=== PATIENT | female | born 1995 | race Caucasian/White ===

== ENCOUNTER 2017-07-29 18:55 | Emergency (ER) | payer SELFPAY ==
[2017-07-29] MEDS ORDERED: SODIUM CHLORIDE 0.9% 1,000 ML IV ONE ×2 (19:15)
--- NOTE | 2017-07-29 19:19 | ED Physician Documentation ---
History of Present Illness - Stated complaint Stated Complaint: NAUSEA/DIARRHEA - Chief complaint Chief Complaint: Abd Pain - History obtained from History obtained from: Patient, Friend - History of Present Illness Timing: Today, How many hours ago (3) Pain level max: 8 Pain level now: 7 Improved by: dark room Worsened by: light, noise - Additonal information Additional information: Patient is a 21-year-old female who presents to the emergency department with a headache that began 3-4 hours ago, this was followed by nausea. No vomiting. Has had diarrhea also today. No fevers. No recent trauma. States the light makes the headache worse. No history of migraines in the family. No history of aneurysms. Patient also states that she had a tampon in for 36 hours and is concerned that she may have developed toxic shock syndrome. She removed the tampon prior to arrival. Currently does not have any vaginal discharge or pain. Review of Systems Ten Systems: 10 systems reviewed and negative Constitutional: denies: Fever, Chills Eyes: reports: Photophobia. denies: Loss of vision, Decreased vision Ears: denies: Ear pain Nose: denies: Rhinorrhea / runny nose, Congestion Throat: denies: Sore throat Cardiac: denies: Chest pain / pressure Respiratory: denies: Cough, Wheezing GI: reports: Nausea, Diarrhea. denies: Abdominal Pain, Vomiting : reports: Other (states she may be ) Skin: denies: Rash Musculoskeletal: denies: Neck pain, Back pain Neurologic: reports: Headache (holocranial, throbbing, aching, gradual onset.). denies: Focal weakness, Numbness, Seizure, Confused, Altered mental status PD PAST MEDICAL HISTORY - Past Medical History Past Medical History: Yes Endocrine/Autoimmune: HyPOthyroidism - Past Surgical History Past Surgical History: Yes General: Cholecystectomy /STRATEGY LEAD: section HEENT: Tonsil/Adenoidectomy - Present Medications Home Medications: Ambulatory Orders Medication Instructions Recorded Confirmed No Known Home Medications [No 07/29/17 07/29/17 Known Home Medications] - Allergies Allergies/Adverse Reactions: Allergies Allergy/AdvReac Type Severity Reaction Status Date / Time oxycodone HCl * Allergy Headache Verified 09/25/15 22:52 [From Percocet] - Social History Does the pt smoke?: No Smoking Status: Never smoker Does the pt drink ETOH?: No Does the pt have substance abuse?: No - Immunizations Immunizations are current?: Yes - POLST Patient has POLST: No PD ED PE NORMAL - Vitals Vital signs reviewed: Yes - General General: Alert and oriented X 3, No acute distress, Well developed/nourished - HEENT HEENT: Atraumatic, PERRL, EOMI, Ears normal, Moist mucous membranes, Pharynx benign, Dentition benign - Neck Neck: Supple, no meningeal sign, Other (FROM without pain) - Cardiac Cardiac: RRR, Strong equal pulses - Respiratory Respiratory: No respiratory distress, Clear bilaterally - Abdomen Abdomen: Soft, Non tender, Non distended - Back Back: No CVA TTP - Derm Derm: Warm and dry, No rash - Extremities Extremities: No edema - Neuro Neuro: Alert and oriented X 3, 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, No motor deficit, No sensory deficit, Normal speech - Psych Psych: Normal mood, Normal affect Results - Vitals Vitals: Vital Signs - 24 hr 07/29/17 07/29/17 19:00 20:49 Temperature 36.2 C L Heart Rate 60 47 L Respiratory 16 16 Rate Blood Pressure 137/92 H 118/64 O2 Saturation 100 100 Oxygen O2 Source Room air - Labs Labs: Laboratory Tests 07/29/17 07/29/17 07/29/17 19:24 19:24 19:24 WBC 10.3 RBC 4.28 Hgb 12.1 Hct 36.9 L MCV 86.0 MCH 28.2 MCHC 32.8 RDW 14.5 Plt Count 278 MPV 8.1 Neut # 8.6 H Lymph # 1.2 L Mobile # 0.4 Eos # 0.0 Baso # 0.0 Absolute Nucleated RBC 0.00 Nucleated RBC % 0.0 Sodium 135 Potassium 3.9 Chloride 100 L Carbon Dioxide 25 Anion Gap 10.0 BUN 15 Creatinine 0.7 Estimated GFR (MDRD) 106 Glucose 110 H Calcium 9.6 Total Bilirubin 0.2 AST 19 ALT 21 Alkaline Phosphatase 61 Total Protein 7.5 Albumin 3.9 Globulin 3.6 Albumin/Globulin Ratio 1.1 Lipase 24 Serum HCG, Qual NEGATIVE Urine Color Urine Clarity Urine pH Ur Specific [place] Urine Protein Urine Glucose (UA) Urine Ketones Urine Occult Blood Urine Nitrite Urine Bilirubin Urine Urobilinogen Ur Leukocyte Esterase Ur Microscopic Review Urine Culture Comments 07/29/17 19:35 WBC RBC Hgb Hct MCV MCH MCHC RDW Plt Count MPV Neut # Lymph # Mobile # Eos # Baso # Absolute Nucleated RBC Nucleated RBC % Sodium Potassium Chloride Carbon Dioxide Anion Gap BUN Creatinine Estimated GFR (MDRD) Glucose Calcium Total Bilirubin AST ALT Alkaline Phosphatase Total Protein Albumin Globulin Albumin/Globulin Ratio Lipase Serum HCG, Qual Urine Color YELLOW Urine Clarity CLEAR Urine pH 6.0 Ur Specific [place] 1.025 Urine Protein NEGATIVE Urine Glucose (UA) NEGATIVE Urine Ketones NEGATIVE Urine Occult Blood NEGATIVE Urine Nitrite NEGATIVE Urine Bilirubin NEGATIVE Urine Urobilinogen 0.2 (NORMAL) Ur Leukocyte Esterase NEGATIVE Ur Microscopic Review NOT INDICATED Urine Culture Comments NOT INDICATED PD MEDICAL DECISION MAKING - ED course Complexity details: reviewed results, re-evaluated patient, considered differential, d/w patient, d/w family (friend) ED course: Patient is a 21-year-old female who presents to the emergency department with what appears to be a migraine type headache. Zofran resolved her nausea. IV fluids and Toradol resolved her headache. Pain was down to a 1 out of 10. She is able to open her eyes and be in a brightly lit environment. Tolerating p.o. without difficulty. No evidence of toxic shock. No evidence of subarachnoid hemorrhage. No evidence of tumor mass. Normal neurological exam. Patient counseled regarding signs and symptoms for which I believe and urgent re- evaluation would be necessary. Patient with good understanding of and agreement to plan and is comfortable going home at this time This document was made in part using voice recognition software. While efforts are made to proofread this document, sound alike and grammatical errors may occur. Departure - Departure Disposition: 01 Home, Self Care Clinical Impression: Headache Qualifiers: Headache type: unspecified Headache chronicity pattern: acute headache Intractability: not intractable Qualified Code(s): R51 - Headache Condition: Good Instructions: ED Headache Migraine Follow-Up: Spring Hernandez DO [Primary Care Provider] - Within 1 week Comments: Go home and rest tonight. Return if you worsen. This should continue to improve.
[2017-07-29 19:30] LABS: BASOPHILS % (AUTO) 0.3 %; EOSINOPHILS % (AUTO) 0.2 %; HGB - HEMOGLOBIN 12.1 g/dL (12.0-16.0); LYMPHOCYTES # (AUTO) 1.2 10^3/uL (1.5-3.5); LYMPHOCYTES % (AUTO) 12.2 %; MEAN CORPUSCULAR HEMOGLOBIN 28.2 pg (27.0-31.0); MEAN CORPUSCULAR HGB CONC 32.8 g/dL (32.0-36.0); MEAN PLATELET VOLUME 8.1 fL (7.9-10.8); MONOCYTES # (AUTO) 0.4 10^3/uL (0.0-1.0); MONOCYTES % (AUTO) 3.9 %; NEUTROPHILS # (AUTO) 8.6 10^3/uL (1.5-6.6); NEUTROPHILS % (AUTO) 83.4 %; PLT - PLATELET COUNT 278 10^3/uL (130-450); RED BLOOD COUNT 4.28 10^6/uL (4.20-5.40); RED CELL DISTRIBUTION WIDTH 14.5 % (12.0-15.0); WHITE BLOOD COUNT 10.3 x10^3/uL (4.8-10.8)
[2017-07-29 19:42] LABS: ALBUMIN 3.9 g/dL (3.2-5.5); ALBUMIN/GLOBULIN RATIO 1.1 (1.0-2.2); BILIRUBIN,TOTAL 0.2 mg/dL (0.2-1.0); CALCIUM 9.6 mg/dL (8.5-10.3); CREATININE 0.7 mg/dL (0.4-1.0); TOTAL PROTEIN 7.5 g/dL (6.7-8.2)
[2017-07-29 19:52] LABS: BILIRUBIN,URINE NEGATIVE (NEGATIVE); GLUCOSE, URINE (UA) NEGATIVE (NEGATIVE); KETONES,URINE (UA) NEGATIVE (NEGATIVE); LEUKOCYTE ESTERASE, URINE NEGATIVE (NEGATIVE); NITRITE,URINE NEGATIVE (NEGATIVE); OCCULT BLOOD,URINE NEGATIVE (NEGATIVE); PROTEIN,URINE NEGATIVE (NEGATIVE); UROBILINOGEN,URINE 0.2 (NORMAL) E.U./dL (NORMAL)
[2017-07-29 19:56] LABS: CLARITY,URINE CLEAR (CLEAR)
[2017-07-29 20:20] LABS: HCG,QUALITATIVE BLOOD NEGATIVE
[2017-07-29] MEDS ORDERED: KETOROLAC 60 MG/2 ML VIAL IVP STA (20:23)
[2017-07-29] MEDS ORDERED: ONDANSETRON 4 MG/2 ML VIAL IVP STA (20:23)
[2017-07-29 20:51] VITALS: BP 118/64
[2017-07-29] MEDS ORDERED: ONDANSETRON ODT 4 MG Prepack 2 TL PRN (21:05)
== END 2017-07-29 21:38 | disposition home or self-care (01) ==
LOC: ED 18:55
DX: R51 Headache (principal)
CPT/HCPCS: 36415; 80053; 81001; 81003; 83690; 84703; 85025; 87086; 96361; 96374; 96375; 99283; 99284

== ENCOUNTER 2018-04-11 14:09 | Outpatient (CLI) | payer MEDICAID ==
[2018-04-11 14:46] LABS: HB2 TOTAL 13.7 g/dL; HEMOGLOBIN A1C 0.53 g/dL; HEMOGLOBIN A1C % 5.7 % (4.6-6.2)
[2018-04-11 16:41] LABS: THYROID STIMULATING HORMONE 3.05 uIU/mL (0.34-5.60)
[2018-04-11 16:43] LABS: FREE T4 (FREE THYROXINE) 0.84 ng/dL (0.58-1.64)
== END 2018-04-11 14:10 | disposition home or self-care (01) ==
LOC: LAB 14:09
PROVIDERS: ATTEND Obstetrics & Gynecology
DX: E66.9 Obesity, unspecified (principal)
CPT/HCPCS: 36415; 83036; 84439; 84443; 84481

== ENCOUNTER 2018-04-26 23:12 | Emergency (ER) | payer MEDICAID ==
[2018-04-27] MEDS ORDERED: TETANUS/DIPHTHERIA/PERTUSSIS 0.5 ML SYRINGE IM ONE (00:19)
--- NOTE | 2018-04-27 00:19 | ED Physician Documentation ---
PD HPI LOWER EXT INJURY - Stated complaint Stated Complaint: R ANKLE PX - Chief complaint Chief Complaint: Ext Problem - History obtained from History obtained from: Patient - History of Present Illness PD HPI LOW EXT INJURY LOCATION: Right, Ankle Type of injury: Other (abrasion) Where injury occurred: Other ([employer] [facility]) Pain level max: 0 Pain level now: 0 - Additional information Additional information: sustained abrasion right ankle on alen nail at [employer] [facility]. She presents requesting tetanus booster shot; she has no c/o pain and is here only for the tetanus shot. 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: section HEENT: Tonsil/Adenoidectomy - Present Medications Home Medications: Ambulatory Orders Medication Instructions Recorded Confirmed No Known Home Medications 07/29/17 07/29/17 - Allergies Allergies/Adverse Reactions: Allergies Allergy/AdvReac Type Severity Reaction Status Date / Time oxycodone HCl * Allergy Headache Verified 09/25/15 22:52 [From Percocet] - Social History Does the pt smoke?: No Smoking Status: Never smoker Does the pt drink ETOH?: No Does the pt have substance abuse?: No - Immunizations Immunizations are current?: Yes - POLST Patient has POLST: No PD ED PE NORMAL - Vitals Vital signs reviewed: Yes - Extremities Extremities: No tenderness to palpate, Normal ROM s pain, No edema, Other (superficial linear abrasion medial aspect right distal leg (immediately proximal to medial malleolus)) Results - Vitals Vitals: Vital Signs - 24 hr 04/26/18 04/27/18 23:18 00:35 Temperature 36.7 C Heart Rate 68 Respiratory 17 16 Rate Blood Pressure 135/91 H 127/78 O2 Saturation 100 Oxygen O2 Source Room air PD MEDICAL DECISION MAKING - ED course Complexity details: considered differential, d/w patient Departure - Departure Disposition: 01 Home, Self Care Clinical Impression: Abrasion Condition: Good Instructions: ED Abrasion, ED Immunization Tetanus and FU Discharge Date/Time: 04/27/18 00:36
[2018-04-27 00:37] VITALS: BP 127/78
== END 2018-04-27 00:36 | disposition home or self-care (01) ==
LOC: ED 23:12
DX: S90.511A Abrasion, right ankle, initial encounter (principal); X58.XXXA Exposure to other specified factors, initial encounter; Y92.89 Other specified places as the place of occurrence of the external cause; Y99.0 Civilian activity done for income or pay
CPT/HCPCS: 90471; 99282; 99283

== ENCOUNTER 2019-09-01 13:26 | Outpatient (CLI) | payer SELFPAY | END 2019-09-01 13:27 | disposition home or self-care (01) | LOC: COV 13:26 | PROVIDERS: ATTEND Family Medicine | DX: R05 Cough (principal); R50.9 Fever, unspecified | CPT/HCPCS: 81599 ==

== ENCOUNTER 2020-03-31 20:46 | Outpatient (CLI) | payer OTHER | END 2020-03-31 20:47 | disposition home or self-care (01) | LOC: COV 20:46 | PROVIDERS: ATTEND Family Medicine | DX: Z20.828 Contact with and (suspected) exposure to other viral communicable diseases (principal) ==

== ENCOUNTER 2020-04-06 16:56 | Outpatient (CLI) | payer OTHER | END 2020-04-06 16:57 | disposition home or self-care (01) | LOC: COV 16:56 | PROVIDERS: ATTEND Family Medicine | DX: U07.1 COVID-19 (principal) ==

== ENCOUNTER 2020-09-20 10:58 | Outpatient (CLI) | payer MEDICAID, OTHER ==
[2020-09-20 18:20] LABS: BASOPHILS % (AUTO) 0.4 %; HCT - HEMATOCRIT 38.8 % (37.0-47.0); HGB - HEMOGLOBIN 12.2 g/dL (12.0-16.0); LYMPHOCYTES # (AUTO) 1.3 10^3/uL (1.5-3.5); LYMPHOCYTES % (AUTO) 15.9 %; MEAN CORPUSCULAR HEMOGLOBIN 27.4 pg (27.0-31.0); MEAN CORPUSCULAR HGB CONC 31.4 g/dL (32.0-36.0); MEAN CORPUSCULAR VOLUME 87.2 fL (81.0-99.0); MEAN PLATELET VOLUME 10.3 fL (7.9-10.8); MONOCYTES # (AUTO) 0.4 10^3/uL (0.0-1.0); MONOCYTES % (AUTO) 5.2 %; NEUTROPHILS # (AUTO) 6.5 10^3/uL (1.5-6.6); NEUTROPHILS % (AUTO) 78.1 %; PLT - PLATELET COUNT 363 10^3/uL (130-450); RED BLOOD COUNT 4.45 10^6/uL (4.20-5.40); RED CELL DISTRIBUTION WIDTH 13.3 % (12.0-15.0); WHITE BLOOD COUNT 8.3 x10^3/uL (4.8-10.8)
[2020-09-20 18:42] LABS: HCG,QUALITATIVE BLOOD NEGATIVE
[2020-09-20 18:47] LABS: ALBUMIN/GLOBULIN RATIO 1.1 (1.0-2.2); BILIRUBIN,TOTAL 0.6 mg/dL (0.2-1.0); CALCIUM 9.3 mg/dL (8.5-10.3); CREATININE 0.7 mg/dL (0.4-1.0); CRP - C-REACTIVE PROTEIN 1.1 mg/dL (0-1.0); POTASSIUM 3.6 mmol/L (3.5-5.0); TOTAL PROTEIN 7.7 g/dL (6.7-8.2)
== END 2020-09-20 23:59 | disposition home or self-care (01) ==
LOC: LAB.WCP 10:58
PROVIDERS: ATTEND Family Medicine
DX: R10.32 Left lower quadrant pain (principal)
CPT/HCPCS: 36415; 80053; 83690; 84703; 85025; 86140

== ENCOUNTER 2020-09-20 14:40 | Outpatient (CLI) | payer MEDICAID ==
[2020-09-20] MEDS ORDERED: IOPAMIDOL-300 100 ML VIAL ONE (14:51)
[2020-09-20] MEDS ORDERED: IOPAMIDOL-300 50 ML VIAL ONE (14:51)
[2020-09-20] MEDS ORDERED: IOPAMIDOL-300 100 ML VIAL IVP ONE (16:13)
[2020-09-20] MEDS ORDERED: IOPAMIDOL-300 50 ML VIAL PO ONE (16:14)
--- NOTE | 2020-09-20 16:26 | CT Report ---
PROCEDURE: Abdomen/Pelvis W INDICATIONS: ABD PAIN LLQ CONTRAST: IV CONTRAST: Isovue 300 ml: 100 PO CONTRAST: Isovue 300 ml50 TECHNIQUE: After the administration of IV and oral contrast, 5 mm thick sections acquired from the diaphragms to the symphysis. 5 mm thick coronal and sagittal reformats were acquired. For radiation dose reducti on, the following was used: automated exposure control, adjustment of mA and/or kV according to fartun ent size. COMPARISON: Ultrasound of abdomen dated 09/30/2014. FINDINGS: Image quality: Excellent. ABDOMEN: Lung bases: Lung bases are clear. Heart size is normal. Solid organs: Liver and spleen are normal in size and enhancement. At least 2 splenule are seen jono ures up to 2.2 x 1.8 cm in size. Hepatic steatosis is seen. Gallbladder is surgically absent. Bilia ry system is non dilated. Pancreas enhances normally. No adrenal nodules. Kidneys demonstrate norm al size and enhancement, without hydronephrosis. Peritoneum and bowel: There is no evidence of bowel obstruction. No gastric or small bowel wall thick ening. Mild wall thickening involving sigmoid colon is seen without significant adjacent pericolonic fat stranding. Low-grade sigmoid colitis cannot be excluded. There is no abscess collection. No free fluid of free air. Nodes and vessels: No retroperitoneal or mesenteric adenopathy by size criteria. Aorta and inferior vena cava are normal in size. Miscellaneous: No ventral hernias. PELVIS: Genitourinary: Bladder wall thickness is normal. Bilateral ovarian cysts are seen measures 2.3 x 2 cm in size in left ovary and 2.3 x 2.1 cm in size in right ovary. Uterus is within normal limits. Miscellaneous: No inguinal hernias or adenopathy. Bones: No suspicious bony lesions. No vertebral body compression fractures. IMPRESSION: 1. Very mild sigmoid colon wall thickening, concerning for low-grade sigmoid colitis. No bowel obstru ction. No other area of abnormal bowel wall thickening. No free fluid of free air. No evidence of acu te appendicitis. 2. Bilateral ovarian cysts. 3. Very mild hepatic steatosis and 2 splenules as above. Prior cholecystectomy. Reviewed by: Emanuel Jordan MD on 09/20/2020 3:25 PM AKDT Approved by: Emanuel Jordan MD on 09/20/2020 3:25 PM AKDT Station ID: [id number]
== END 2020-09-20 14:41 | disposition home or self-care (01) ==
LOC: DI 14:40
PROVIDERS: ATTEND Family Medicine
DX: N83.202 Unspecified ovarian cyst, left side (principal); N83.201 Unspecified ovarian cyst, right side; K76.0 Fatty (change of) liver, not elsewhere classified
CPT/HCPCS: 74177; Q9967

== ENCOUNTER 2020-10-08 12:45 | Outpatient (CLI) | payer MEDICAID | END 2020-10-08 12:46 | disposition home or self-care (01) | LOC: COV 12:45 | PROVIDERS: ATTEND Family Medicine | DX: R50.9 Fever, unspecified (principal); R53.83 Other fatigue; R07.0 Pain in throat; R09.81 Nasal congestion; J34.89 Other specified disorders of nose and nasal sinuses; Z20.822 Contact with and (suspected) exposure to COVID-19 ==

== ENCOUNTER 2020-11-09 08:07 | Outpatient (CLI) | payer MEDICAID ==
[2020-11-09 15:33] LABS: H. PYLORIS ANTIGEN STL NEGATIVE (Negative)
== END 2020-11-09 08:08 | disposition home or self-care (01) ==
LOC: LAB.R 08:07
PROVIDERS: ATTEND Surgery
DX: K52.9 Noninfective gastroenteritis and colitis, unspecified (principal)
CPT/HCPCS: 81599; 87045; 87046; 87177; 87209; 87338; 87427; 89055

== ENCOUNTER 2020-11-16 12:30 | Day surgery (SDC) | payer MEDICAID ==
--- OUTSIDE RECORDS SUMMARY | 2020-11-16 12:33 | EXTERNAL MEDICAL SUMMARY RPT | Continuity of Care Document ---
:1995 Demographics Phone Unavailable Preferred Language Swedish Marital Status Unknown Mormon Affiliation Unknown Race Unknown Ethnic Group Unknown Author Organization [facility] Address [address] [place] [address] Phone Care Team Providers Name Role Phone [place] Unavailable Unavailable Allergies Encounters Medications date description facility 20200902 Ondansetron 4 MG Disintegrating Tablet [facility] Problems Procedures date description facility [id number] General Physician [facility] Results Vital Signs date measurement value source 20200902 weight_standard 321.99 lb 20200902 weight_metric 146.05 kg 20200902 temperature_standard 97.6 F 20200902 temperature_metric 36.44 C 20200902 respiration_rate 18 /min 20200902 height_standard 68 in 20200902 height_metric 172.72 cm 20200902 heart_rate 70 /min 20200902 BP_systolic 130 mm[Hg] 20200902 BP_diastolic 86 mm[Hg] 20200902 BMI 48.9 kg/m2
[2020-11-16] MEDS ORDERED: LACTATED RINGERS 1,000 ML IV ONE ×2 (12:34→14:57)
[2020-11-16 12:49] LABS: HCG UR QUAL NEGATIVE
--- NOTE | 2020-11-16 13:28 | ANESTHESIA ---
Pre-Anesthesia VS, & Labs - Diagnosis diarrhea - Procedure colonoscopy Vital Signs: Temp Pulse Resp BP Pulse Ox 36 C L 108 H 16 143/100 H 97 11/16/20 12:38 11/16/20 12:38 11/16/20 12:38 11/16/20 12:38 11/16/20 12:38 Height: 5 ft 8 in Weight (kg): 144 kg Body Mass Index: 48.2 BMI Classification: Morbidly Obese - NPO >8 hours - Is Patient ?: No Home Medications and Allergies No Known Home Medications 07/29/17 Allergies/Adverse Reactions: Allergies Allergy/AdvReac Type Severity Reaction Status Date / Time oxycodone HCl * Allergy Headache Verified 09/25/15 22:52 [From Percocet] Anes History & Medical History - Anesthetic History Anesthesia Complications: reports: No previous complications Family history of Anesthesia Complications: Denies Family history of Malignant Hyperthermia: Denies - Medical History Cardiovascular: reports: None, Hypertension (pt reports recent HTN, as of 1 weeks ago. Has not seen PCP. Not on any meds currently) Pulmonary: reports: None Gastrointestinal: reports: None Urinary: reports: None Neuro: reports: None Musculoskeletal: reports: None Endocrine/Autoimmune: reports: HyPOthyroidism Blood Disorders: reports: None Skin: reports: None Smoking Status: Never smoker - Surgical History General: reports: Cholecystectomy Eyes Ears Nose Throat (EENT): reports: Tonsil/Adenoidectomy Gynecologic: reports: section Exam General: Alert, Oriented x3, Cooperative Dental: WNL Mouth Openin Fingerbreadth Neck Mobility: Normal Mallampati classification: II Thyromental Distance: 4-6 cm Respiratory: Lungs clear Cardiovascular: Regular rate Plan Anesthesia Type: Total IV Consent for Procedure(s) Verified and Reviewed: Yes Code Status: Attempt Resuscitation ASA classification: 3-Severe systemic disease Is this case an emergency?: No
[2020-11-16] MEDS ORDERED: LIDOCAINE-MPF 2% 5 ML VIAL ONE (14:06)
[2020-11-16] MEDS ORDERED: MIDAZOLAM 2 MG/2 ML VIAL ONE (14:06)
[2020-11-16] MEDS ORDERED: PROPOFOL 1000 MG/100 ML 1,000 MG/100 ML BOTTLE IV ONE (14:06)
[2020-11-16 15:25] VITALS: BP 117/80
--- NOTE | 2020-11-16 19:18 | ANESTHESIA POST OP EVALUATION ---
Anesthesia Post Eval - Post Anesthesia Eval Vitals: Last Vital Signs Temp 36.6 C 11/16/20 15:23 Pulse 88 11/16/20 15:23 Resp 14 11/16/20 15:23 BP 117/80 11/16/20 15:23 Pulse Ox 98 11/16/20 15:23 CV Function Including HR & BP: Stable Pain Control: Satisfactory Nausea & Vomiting: Negative Mental Status: Baseline Respiratory Status: Airway Patent Hydration Status: Satisfactory Anesthesia Complications: None
== END 2020-11-16 12:31 | disposition home or self-care (01) ==
LOC: SDS 12:30
PROVIDERS: ATTEND Surgery
PROC: 0DBE8ZX Excision of Large Intestine, Via Natural or Artificial Opening Endoscopic, Diagnostic (ICD-10-PCS; principal; 2020-11-16 13:45)
DX: R10.30 Lower abdominal pain, unspecified (principal); R19.7 Diarrhea, unspecified; K64.8 Other hemorrhoids; R93.5 Abnormal findings on diagnostic imaging of other abdominal regions, including retroperitoneum; E66.01 Morbid (severe) obesity due to excess calories; Z68.42 Body mass index [BMI] 45.0-49.9, adult; Z87.891 Personal history of nicotine dependence
CPT/HCPCS: 45380; 81025; 83630; 87015; 87177; 87209; 87272; 87329; 87493; J7120

== ENCOUNTER 2020-11-25 17:14 | Emergency (ER) | payer MEDICAID ==
--- NOTE | 2020-11-25 17:44 | ED Physician Documentation ---
PD HPI CHEST PAIN - Stated complaint Stated Complaint: CP/SOA/WEAKNESS - Chief complaint Chief Complaint: Cardiac - History obtained from History obtained from: Patient - Additional information Additional information: 25-year-old woman with recent diagnosis of colitis on vancomycin for same and has had 11 days of constant substernal chest pressure which especially at night leads to a throbbing painful sensation up the left side of the neck to the left ear and head. She also thinks she might have an ear infection on the left. She denies pedal edema or calf pain. She is not on oral contraceptive pills, she has Nexplanon in place. No associated cough. She has had progressive shortness of breath with all this. No known family history of coronary disease. No possibility of per her. Review of Systems Ten Systems: 10 systems reviewed and negative Constitutional: reports: Fatigue. denies: Fever, Chills Cardiac: reports: Chest pain / pressure. denies: Palpitations Respiratory: reports: Dyspnea. denies: Cough GI: denies: Abdominal Pain, Nausea, Vomiting PD PAST MEDICAL HISTORY - Past Medical History Cardiovascular: None, Hypertension (pt reports recent HTN, as of 1 weeks ago. Has not seen PCP. 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 : None HEENT: None Psych: None Musculoskeletal: None Derm: None - Past Surgical History Past Surgical History: Yes General: Cholecystectomy /HYDRAULIC CHAIR ASSEMBLER: section HEENT: Tonsil/Adenoidectomy - Present Medications Home Medications: Ambulatory Orders Medication Instructions Recorded Confirmed Azithromycin [Zithromax] 1 tab PO DAILY #6 tablet 11/25/20 Famotidine [Pepcid] 20 mg PO BID #60 tablet 11/25/20 Metoprolol Succinate [Toprol Xl] 25 mg PO DAILY #30 tablet 11/25/20 Vancomycin [Vancocin] 125 mg PO Q6HR 11/25/20 11/25/20 - Allergies Allergies/Adverse Reactions: Allergies Allergy/AdvReac Type Severity Reaction Status Date / Time oxycodone HCl * Allergy Headache Verified 11/25/20 17:25 [From Percocet] - Social History Does the pt smoke?: No Smoking Status: Never smoker Does the pt drink ETOH?: No Does the pt have substance abuse?: No - Immunizations Immunizations are current?: Yes - POLST Patient has POLST: No PD ED PE NORMAL - Vitals Vital signs reviewed: Yes - General General: Alert and oriented X 3, No acute distress - HEENT HEENT: PERRL, EOMI - Neck Neck: Supple, no meningeal sign, No bony TTP - Cardiac Cardiac: RRR, No murmur - Respiratory Respiratory: No respiratory distress, Clear bilaterally - Abdomen Abdomen: Normal bowel sounds, Soft, Non tender - Back Back: No CVA TTP, No spinal TTP - Derm Derm: Normal color, Warm and dry - Extremities Extremities: No edema, No calf tenderness / cord - Neuro Neuro: Alert and oriented X 3, Normal speech Results - Vitals Vitals: Vital Signs - 24 hr 11/25/20 17:20 Temperature 36 C L Heart Rate 86 Respiratory 19 Rate Blood Pressure 136/88 H O2 Saturation 99 Oxygen O2 Source Room air - EKG (time done) 1748 Rate: Rate (enter#) (84) Rhythm: NSR [place]: Normal QRS: LVH Ischemia: Non specific changes (flat inferior twaves). No: ST elevation c/w ischemia, ST depression - Labs Labs: Laboratory Tests 11/25/20 11/25/20 11/25/20 17:56 17:56 17:56 WBC 8.9 RBC 4.44 Hgb 12.4 Hct 37.3 MCV 84.0 MCH 27.9 MCHC 33.2 RDW 12.6 Plt Count 383 MPV 10.1 Neut # (Auto) 6.8 H Lymph # (Auto) 1.5 [place] # (Auto) 0.5 Eos # (Auto) 0.0 Baso # (Auto) 0.0 Absolute Nucleated RBC 0.00 Nucleated RBC % 0.0 D-Dimer 207.4 Sodium 138 Potassium 3.8 Chloride 104 Carbon Dioxide 24 Anion Gap 10.0 BUN 11 Creatinine 0.6 Estimated GFR (MDRD) 122 Glucose 101 H Calcium 9.6 Total Bilirubin 0.5 AST 63 H ALT 103 H Alkaline Phosphatase 68 Troponin I High Sens Total Protein 7.7 Albumin 4.0 Globulin 3.7 Albumin/Globulin Ratio 1.1 Lipase 28 Urine HCG, Qual 11/25/20 11/25/20 17:56 18:02 WBC RBC Hgb Hct MCV MCH MCHC RDW Plt Count MPV Neut # (Auto) Lymph # (Auto) [place] # (Auto) Eos # (Auto) Baso # (Auto) Absolute Nucleated RBC Nucleated RBC % D-Dimer Sodium Potassium Chloride Carbon Dioxide Anion Gap BUN Creatinine Estimated GFR (MDRD) Glucose Calcium Total Bilirubin AST ALT Alkaline Phosphatase Troponin I High Sens < 2.3 L Total Protein Albumin Globulin Albumin/Globulin Ratio Lipase Urine HCG, Qual NEGATIVE PD MEDICAL DECISION MAKING - ED course ED course: 25-year-old woman presents with almost subacute chest pain. EKG is nonischemic and troponin is negative. Body habitus is a risk factor for PE but D-dimer negative. She has an incidental left otitis media. Given ongoing issues with colitis I recommended watchful waiting with regard to antibiotics. Given the p ulsatile head pressure I think beta-blockers may be helpful and these are begun as well as Pepcid eschewing a PPI again because of the ongoing colitis. Departure - Departure Disposition: Home, Self Care Clinical Impression: Chest pain Qualifiers: Chest pain type: precordial pain Qualified Code(s): R07.2 - Precordial pain Hypertension Qualifiers: Hypertension type: essential hypertension Qualified Code(s): I10 - Essential (primary) hypertension LOM (left otitis media) Qualifiers: Otitis media type: suppurative Chronicity: acute Recurrence: non-recurrent Spontaneous tympanic membrane rupture: without spontaneous rupture Qualified C ode(s): H66.002 - Acute suppurative otitis media without spontaneous rupture of ear drum, left ear Condition: Good Record reviewed to determine appropriate education?: Yes Instructions: ED Chest Pain NonCardiac Prescriptions: Famotidine [Pepcid] 20 mg PO BID #60 tablet Metoprolol Succinate [Toprol Xl] 25 mg PO DAILY #30 tablet Azithromycin [Zithromax] 1 tab PO DAILY #6 tablet Comments: As discussed, given the ongoing colitis I would avoid filling the antibiotics for a few days, and if you are your pain goes away I would not fill the antibiotics at all. Return for new or worsening symptoms. The metoprolol is a beta-maxime which should help with that pulsatile pressure you are having at night, I am starting you on a fairly low dose that you could double in a few days if blood pressures are still uncontrolled. Follow-up with your doctor within the week, call tomorrow for an appointment. Forms: Watchful Waiting
--- NOTE | 2020-11-25 17:58 | XRAY Report ---
PROCEDURE: Chest 1 View X-Ray INDICATIONS: Chest Pain TECHNIQUE: One view of the chest was acquired. COMPARISON: None. FINDINGS: Surgical changes and devices: None. Lungs and pleura: No pleural effusions or pneumothorax. Lungs are clear. Mediastinum: Mediastinal contours appear normal. Heart size is normal. Bones and chest wall: No suspicious bony lesions. Overlying soft tissues appear unremarkable. IMPRESSION: No acute disease. Reviewed by: Kal Beyer MD on 11/25/2020 5:56 PM PDT Approved by: Kal Beyer MD on 11/25/2020 5:56 PM PDT Station ID: [id number]
[2020-11-25 18:11] LABS: BASOPHILS % (AUTO) 0.3 %; HCT - HEMATOCRIT 37.3 % (37.0-47.0); HGB - HEMOGLOBIN 12.4 g/dL (12.0-16.0); LYMPHOCYTES # (AUTO) 1.5 10^3/uL (1.5-3.5); LYMPHOCYTES % (AUTO) 17.1 %; MEAN CORPUSCULAR HEMOGLOBIN 27.9 pg (27.0-31.0); MEAN CORPUSCULAR HGB CONC 33.2 g/dL (32.0-36.0); MEAN PLATELET VOLUME 10.1 fL (7.9-10.8); MONOCYTES # (AUTO) 0.5 10^3/uL (0.0-1.0); MONOCYTES % (AUTO) 5.4 %; NEUTROPHILS # (AUTO) 6.8 10^3/uL (1.5-6.6); NEUTROPHILS % (AUTO) 76.9 %; PLT - PLATELET COUNT 383 10^3/uL (130-450); RED BLOOD COUNT 4.44 10^6/uL (4.20-5.40); RED CELL DISTRIBUTION WIDTH 12.6 % (12.0-15.0); WHITE BLOOD COUNT 8.9 x10^3/uL (4.8-10.8)
[2020-11-25 18:14] LABS: HCG UR QUAL NEGATIVE
[2020-11-25 18:23] LABS: ALBUMIN/GLOBULIN RATIO 1.1 (1.0-2.2); BILIRUBIN,TOTAL 0.5 mg/dL (0.2-1.0); CALCIUM 9.6 mg/dL (8.5-10.3); CREATININE 0.6 mg/dL (0.4-1.0); POTASSIUM 3.8 mmol/L (3.5-5.0); TOTAL PROTEIN 7.7 g/dL (6.7-8.2)
[2020-11-25] MEDS ORDERED: METOPROLOL SUCCINATE 25 MG TABLET PO STA (18:51)
[2020-11-25] MEDS ORDERED: FAMOTIDINE 20 MG TABLET PO STA (18:51)
[2020-11-25 19:19] VITALS: BP 135/85
== END 2020-11-25 19:19 | disposition home or self-care (01) ==
LOC: ED 17:14
DX: R07.2 Precordial pain (principal); H66.002 Acute suppurative otitis media without spontaneous rupture of ear drum, left ear; I10 Essential (primary) hypertension
CPT/HCPCS: 36415; 71045; 80053; 81025; 83690; 84484; 85025; 85379; 93005; 99284; A9270

== ENCOUNTER 2020-12-21 12:38 | Emergency (ER) | payer MEDICAID ==
--- NOTE | 2020-12-21 13:12 | ED Physician Documentation ---
PD HPI HEADACHE - Stated complaint Stated Complaint: NUMB HANDS,BLURRED VISION,NAUSEA - Chief complaint Chief Complaint: General - History obtained from History obtained from: Patient - History of Present Illness Timing - onset: How many hours ago (1) Timing - onset during: Light activity Timing - duration: Hours (1) Timing - details: Abrupt onset, Still present Worst headache ever?: Worst headache ever? Location: Right (feeling behind right eye and on right mormonism area.) Quality: Throbbing, Aching Associated symptoms: Nausea, Vision changes (some wiggling/flashes right visual field in both eyes.). No: Fever, Stiff neck, Eye pain Improved by: No: Rest Worsened by: Light. No: Noise Contributing factors: No: Recent illness, Trauma Similar symptoms before: Has not had sx before Recently seen: Not recently seen Review of Systems Constitutional: denies: Fever, Chills Nose: denies: Rhinorrhea / runny nose, Congestion Throat: denies: Sore throat Respiratory: reports: Dyspnea (onset after headache, felt dyspnea and herself breathing fast. Onset of fingers numb and spasms after awhile breathing.). denies: Cough GI: reports: Nausea. denies: Abdominal Pain Skin: denies: Rash Neurologic: reports: Numbness (both arms and right face (onset not together).). denies: Focal weakness, Altered mental status PD PAST MEDICAL HISTORY - Past Medical History Cardiovascular: None, Hypertension (pt reports recent HTN, as of 1 weeks ago. Has not seen PCP. 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: section HEENT: Tonsil/Adenoidectomy - Present Medications Home Medications: Ambulatory Orders Medication Instructions Recorded Confirmed Famotidine [Pepcid] 20 mg PO BID #60 tablet 11/25/20 12/21/20 Metoprolol Succinate [Toprol Xl] 25 mg PO DAILY #30 tablet 11/25/20 12/21/20 - Allergies Allergies/Adverse Reactions: Allergies Allergy/AdvReac Type Severity Reaction Status Date / Time oxycodone HCl * Allergy Headache Verified 12/21/20 12:42 [From Percocet] - Social History Does the pt smoke?: No Smoking Status: Never smoker Does the pt drink ETOH?: No Does the pt have substance abuse?: No - Immunizations Immunizations are current?: Yes - POLST Patient has POLST: No PD ED PE NORMAL - Vitals Vital signs reviewed: Yes (fast breathing and deeper) - General General: Alert and oriented X 3, Well developed/nourished - HEENT HEENT: Pharynx benign - Neck Neck: Supple, no meningeal sign, No adenopathy - Cardiac Cardiac: RRR, No murmur - Respiratory Respiratory: Clear bilaterally - Abdomen Abdomen: Normal bowel sounds, Soft - Derm Derm: Normal color, Warm and dry - Neuro Neuro: Alert and oriented X 3, No motor deficit, No sensory deficit (has sensation on face but states tingling feeling right side cheek.), Normal speech Eye Opening: Spontaneous Motor: Obeys Commands Verbal: Oriented GCS Score: 15 Results - Vitals Vitals: Oxygen O2 Source Room air - Labs Labs: Laboratory Tests 12/21/20 12/21/20 12/21/20 13:50 13:50 13:50 WBC 8.7 RBC 4.47 Hgb 12.4 Hct 37.1 MCV 83.0 MCH 27.7 MCHC 33.4 RDW 12.4 Plt Count 336 MPV 9.7 Neut # (Auto) 6.6 Lymph # (Auto) 1.5 [place] # (Auto) 0.6 Eos # (Auto) 0.0 Baso # (Auto) 0.0 Absolute Nucleated RBC 0.00 Nucleated RBC % 0.0 Sodium 138 Potassium 3.6 Chloride 107 Carbon Dioxide 22 Anion Gap 9.0 BUN 12 Creatinine 0.6 Estimated GFR (MDRD) 122 Glucose 106 H Calcium 9.6 Total Bilirubin 0.6 AST 36 ALT 53 Alkaline Phosphatase 71 Total Protein 7.9 Albumin 3.9 Globulin 4.0 Albumin/Globulin Ratio 1.0 Lipase 30 TSH 1.63 - Rads (name of study) head CT Radiology: Prelim report reviewed (no acuted process), See rad report chest xrayu Radiology: Prelim report reviewed (no acute process), See rad report PD MEDICAL DECISION MAKING - ED course Complexity details: re-evaluated patient (with more controlled breathing, she says dyspnea is better as is hand numbness and spasm. Right face is still tingling. Headache is improving quite well but not resolved. ), considered differential (right headache with visual changes, nausea, and facial numbness abruptly sounds like new onset migraine. Then seems like got into hyperventilation with arm numbness and was having deep/fast breathing on initial exam. ), d/w patient Departure - Departure Disposition: 01 Home, Self Care Clinical Impression: Right facial numbness, Hyperventilation Migraine Qualifiers: Migraine type: unspecified Status migrainosus presence: without status migrainosus Intractability: not intractable Qualified Code(s): G43.909 - Migraine, unspecified, not intractable, without status migrainosus Condition: Stable Record reviewed to determine appropriate education?: Yes Instructions: ED Headache Migraine Follow-Up: Spring Hernandez DO [Primary Care Provider] - Comments: Your symptoms seem consistent with a complex migraine with the headache associated with the numbness in the face. I think you had some hyperventilating as well. Your head CT does not show any bleeding swelling or mass-effect. Your chest x-ray and blood tests are normal as well. I would anticipate improvement in the numbness of your face over the today into tomorrow. Tylenol or ibuprofen if needed for mild pains. Follow-up with your primary care if not improved well over the next day or 2 or return to the ER/walk-in clinic if persisting symptoms are worse again. Discharge Date/Time: 12/21/20 16:11
[2020-12-21] MEDS ORDERED: SODIUM CHLORIDE 0.9% 1,000 ML IV STA (13:13)
[2020-12-21] MEDS ORDERED: KETOROLAC 15 MG/ML VIAL IVP STA (13:13)
[2020-12-21] MEDS ORDERED: diphenhydrAMINE INJ 50 MG/ML VIAL IVP STA (13:13)
[2020-12-21] MEDS ORDERED: ONDANSETRON 4 MG/2 ML VIAL IVP STA (13:14)
[2020-12-21 13:55] LABS: BASOPHILS % (AUTO) 0.3 %; HCT - HEMATOCRIT 37.1 % (37.0-47.0); HGB - HEMOGLOBIN 12.4 g/dL (12.0-16.0); LYMPHOCYTES # (AUTO) 1.5 10^3/uL (1.5-3.5); LYMPHOCYTES % (AUTO) 16.7 %; MEAN CORPUSCULAR HEMOGLOBIN 27.7 pg (27.0-31.0); MEAN CORPUSCULAR HGB CONC 33.4 g/dL (32.0-36.0); MEAN PLATELET VOLUME 9.7 fL (7.9-10.8); MONOCYTES # (AUTO) 0.6 10^3/uL (0.0-1.0); MONOCYTES % (AUTO) 6.5 %; NEUTROPHILS # (AUTO) 6.6 10^3/uL (1.5-6.6); NEUTROPHILS % (AUTO) 76.3 %; PLT - PLATELET COUNT 336 10^3/uL (130-450); RED BLOOD COUNT 4.47 10^6/uL (4.20-5.40); RED CELL DISTRIBUTION WIDTH 12.4 % (12.0-15.0); WHITE BLOOD COUNT 8.7 x10^3/uL (4.8-10.8)
--- NOTE | 2020-12-21 14:18 | CT Report ---
PROCEDURE: HEAD WO INDICATIONS: abrupt headache right side TECHNIQUE: Noncontrast 4.5 mm thick angled axial sections acquired from the foramen magnum to the vertex. For r adiation dose reduction, the following was used: automated exposure control, adjustment of mA and/or kV according to patient size. COMPARISON: None. FINDINGS: Image quality: Excellent. CSF spaces: Basal cisterns are patent. No extra-axial fluid collections. Ventricles are normal in size and shape. Brain: No intracranial hemorrhage, mass, or mass effect. Rivera-white matter interface is preserved. Skull and face: Calvarium and visualized facial bones are intact, without suspicious lesions. Sinuses: Visualized sinuses and mastoids are clear. IMPRESSION: 1. No acute intracranial abnormality. Reviewed by: Ministerio Nolen MD on 12/21/2020 2:16 PM PDT Approved by: Ministerio Nolen MD on 12/21/2020 2:16 PM PDT Station ID: [id number]
[2020-12-21 14:24] LABS: ALBUMIN 3.9 g/dL (3.2-5.5); BILIRUBIN,TOTAL 0.6 mg/dL (0.2-1.0); CALCIUM 9.6 mg/dL (8.5-10.3); CREATININE 0.6 mg/dL (0.4-1.0); POTASSIUM 3.6 mmol/L (3.5-5.0); TOTAL PROTEIN 7.9 g/dL (6.7-8.2)
--- NOTE | 2020-12-21 15:27 | XRAY Report ---
PROCEDURE: Chest 1 View X-Ray INDICATIONS: dyspnea TECHNIQUE: One view of the chest was acquired. COMPARISON: 11/25/2020 FINDINGS: Surgical changes and devices: None. Lungs and pleura: No pleural effusions or pneumothorax. Lungs are clear. Mediastinum: Mediastinal contours appear normal. Heart size is normal. Bones and chest wall: No suspicious bony lesions. Overlying soft tissues appear unremarkable. IMPRESSION: No acute cardiopulmonary process demonstrated radiographically. Reviewed by: Nino Ayala MD on 12/21/2020 3:25 PM PDT Approved by: Nnio Ayala MD on 12/21/2020 3:25 PM PDT Station ID: [id number]
[2020-12-21 15:51] VITALS: BP 124/73
== END 2020-12-21 16:11 | disposition home or self-care (01) ==
LOC: ED 12:38
DX: G43.909 Migraine, unspecified, not intractable, without status migrainosus (principal); R06.4 Hyperventilation; R20.0 Anesthesia of skin
CPT/HCPCS: 36415; 70450; 71045; 80053; 83690; 84443; 85025; 96374; 96375; 99284; J1200

== ENCOUNTER 2021-01-27 14:08 | Outpatient (CLI) | payer MEDICAID ==
[2021-01-27] MEDS ORDERED: GADOBUTROL 15 MMOL/15 ML VIAL ONE (14:19)
--- NOTE | 2021-01-27 15:22 | MRI Report ---
PROCEDURE: Brain W/WO INDICATIONS: Headaches, hypertension CONTRAST: IV CONTRAST: Gadavist ml: 14 TECHNIQUE: Noncontrast axial T1 spin echo, axial T2 fast spin echo, sagittal and axial FLAIR, coronal T2 fast sp in echo, axial gradient echo, axial diffusion and ADC through the brain. After the administration of contrast, axial and coronal T1 spin echo with fat saturation through the brain. COMPARISON: None. FINDINGS: Image quality: Excellent. CSF spaces: Basal cisterns are patent. No extra-axial fluid collections. Ventricles are normal in size and shape. Brain: No midline shift. No intracranial bleeds or masses. No abnormal intracranial enhancement. There is cerebral volume loss for age. There is periventricular white matter chronic small vessel is chemic change. The brainstem appears normal. Diffusion-weighted images demonstrate no acute ischemi c insults. No chronic ischemic insults. Normal intravascular flow voids are present. Skull and face: Calvarial marrow is normal in signal. Orbits appear normal. Sinuses: Sinuses and mastoids appear clear. IMPRESSION: Normal MRI of the brain. Reviewed by: Nino Ayala MD on 01/27/2021 3:20 PM PDT Approved by: Nino Ayala MD on 01/27/2021 3:20 PM PDT Station ID: [id number]
[2021-01-27] MEDS ORDERED: GADOBUTROL 15 MMOL/15 ML VIAL IVP ONE (16:22)
== END 2021-01-27 14:09 | disposition home or self-care (01) ==
LOC: DI 14:08
PROVIDERS: ATTEND Family Medicine
DX: G44.89 Other headache syndrome (principal); I10 Essential (primary) hypertension
CPT/HCPCS: 70553; A9585

== ENCOUNTER 2021-02-23 08:00 | Outpatient (CLI) | payer MEDICAID | END 2021-02-23 23:59 | disposition home or self-care (01) | LOC: LAB.N 08:00 | PROVIDERS: ATTEND Family Medicine | DX: R39.9 Unspecified symptoms and signs involving the genitourinary system (principal) | CPT/HCPCS: 87086 ==

== ENCOUNTER 2021-03-22 10:08 | Outpatient (CLI) | payer MEDICAID ==
[2021-03-22 19:16] LABS: HCG,QUALITATIVE BLOOD NEGATIVE
[2021-03-22 19:56] LABS: ESTIMATED AVERAGE GLUCOSE 120 mg/dL (70-100); HEMOGLOBIN A1c% 5.8 % (4.27-6.07)
[2021-03-22 21:23] LABS: CHLAMYDIA TRACHOMATIS DNA NEGATIVE (NEGATIVE); NEISSERIA GONORRHOEAE DNA NEGATIVE (NEGATIVE); TRICHOMONAS VAGINALIS DNA NEGATIVE (NEGATIVE)
[2021-03-23 12:06] LABS: HIV AG/AB 4TH GEN NON-REACTIVE (NON-REACTIVE)
== END 2021-03-22 23:59 | disposition home or self-care (01) ==
LOC: LAB.WCP 10:08
PROVIDERS: ATTEND Family Medicine
DX: R73.01 Impaired fasting glucose (principal); N91.2 Amenorrhea, unspecified; Z11.3 Encounter for screening for infections with a predominantly sexual mode of transmission
CPT/HCPCS: 36415; 83036; 84703; 86592; 87389; 87491; 87591; 87661

== ENCOUNTER 2021-03-26 08:16 | Emergency (ER) | payer MEDICAID ==
[2021-03-26] MEDS ORDERED: MORPHINE 2 MG/ML CARPUJECT IVP STA (08:56)
[2021-03-26] MEDS ORDERED: ONDANSETRON 4 MG/2 ML VIAL IVP STA (08:56)
--- NOTE | 2021-03-26 08:59 | ED Physician Documentation ---
PD HPI CHEST PAIN - Stated complaint Stated Complaint: CHEST PX - Chief complaint Chief Complaint: Cardiac - History obtained from History obtained from: Patient - History of Present Illness Recently seen: Clinic - Additional information Additional information: Patient is 25-year-old female with past medical significant for hypertension, hypothyroidism, migraine headache disorder who presents to the emergency department today with chief complaint of chest pain, back pain and left arm numbness. Reports 1 week history of left-sided chest pain. States pain is unchanged with physical activity or respiration. Reports pain is constant in nature and does not wax or wane. States that she began to have numbness in her left upper extremity extending from shoulder down to her 4 fingers sparing the thumb a few days ago. Also reports new onset left-sided back pain. States that she was seen by primary care on Sunday of last week and at that time they identified a tender breast nodule and that she is being scheduled by primary care for further evaluation of that issue. 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 : None HEENT: None Psych: None Musculoskeletal: None Derm: None - Past Surgical History Past Surgical History: Yes General: Cholecystectomy /ROUTE CARRIER: section HEENT: Tonsil/Adenoidectomy - Present Medications Home Medications: Ambulatory Orders Medication Instructions Recorded Confirmed Famotidine [Pepcid] 20 mg PO BID #60 tablet 11/25/20 12/21/20 Metoprolol Succinate [Toprol Xl] 25 mg PO DAILY #30 tablet 11/25/20 03/26/21 Cyclobenzaprine [Flexeril] 10 mg PO TID PRN #20 tablet 03/26/21 - Allergies Allergies/Adverse Reactions: Allergies Allergy/AdvReac Type Severity Reaction Status Date / Time oxycodone HCl * Allergy Headache Verified 12/21/20 12:42 [From Percocet] - Social History Does the pt smoke?: No Smoking Status: Never smoker Does the pt drink ETOH?: No Does the pt have substance abuse?: No - Immunizations Immunizations are current?: Yes - POLST Patient has POLST: No Results - Vitals Vitals: Vital Signs - 24 hr 03/26/21 03/26/21 03/26/21 08:22 08:44 11:10 Temperature 36.5 C Heart Rate 78 81 73 Respiratory 13 11 L 20 Rate Blood Pressure 137/92 H 137/92 H 134/99 H O2 Saturation 100 98 98 Oxygen O2 Source Room air - EKG (time done) 0822 Rhythm: NSR Raphine: Normal Intervals: Normal MO QRS: Normal Ischemia: Normal ST segments, Non specific changes - Labs Labs: Laboratory Tests 03/26/21 03/26/21 03/26/21 08:46 08:46 08:46 WBC 7.4 RBC 4.61 Hgb 12.3 Hct 39.0 MCV 84.6 MCH 26.7 L MCHC 31.5 L RDW 13.2 Plt Count 351 MPV 10.0 Neut # (Auto) 5.5 Lymph # (Auto) 1.4 L [place] # (Auto) 0.4 Eos # (Auto) 0.0 Baso # (Auto) 0.0 Absolute Nucleated RBC 0.00 Nucleated RBC % 0.0 D-Dimer Sodium 141 Potassium 4.0 Chloride 108 Carbon Dioxide 24 Anion Gap 9.0 BUN 11 Creatinine 0.7 Estimated GFR (MDRD) 102 Glucose 115 H Calcium 9.2 Total Bilirubin 0.6 AST 39 ALT 68 H Alkaline Phosphatase 71 Troponin I High Sens < 2.3 L Total Protein 7.6 Albumin 4.1 Globulin 3.5 Albumin/Globulin Ratio 1.2 Lipase 33 Urine HCG, Qual 03/26/21 03/26/21 09:16 09:21 WBC RBC Hgb Hct MCV MCH MCHC RDW Plt Count MPV Neut # (Auto) Lymph # (Auto) [place] # (Auto) Eos # (Auto) Baso # (Auto) Absolute Nucleated RBC Nucleated RBC % D-Dimer 215.1 Sodium Potassium Chloride Carbon Dioxide Anion Gap BUN Creatinine Estimated GFR (MDRD) Glucose Calcium Total Bilirubin AST ALT Alkaline Phosphatase Troponin I High Sens Total Protein Albumin Globulin Albumin/Globulin Ratio Lipase Urine HCG, Qual NEGATIVE PD MEDICAL DECISION MAKING - ED course Complexity details: reviewed old records, reviewed results, re-evaluated patient, considered differential, d/w patient, other ED course: Patient is a 25-year-old female presenting to the emergency department with 1 week chest pain as well as numbness down her left arm and back pain. Reports has been seen by her primary care for this issue already and at that time had a small left breast lump identified. Patient does have a small area of tenderness and induration in the left lower quadrant of her breast. EKG is on above negative indications of acute cardiac ischemia or dysrhythmia. Chest x-ray nonacute. Labs within normal limits. High-sensitivity troponin negative. Patient reevaluated on multiple occasions while in the emergency department and found to be resting comfortably and in no acute distress. Was given small dose medication for pain and nausea. Will discharge with medications for pain control. Encourage careful follow-up with primary care or return to the emergency department for new or worsening symptoms. Departure - Departure Disposition: 01 Home, Self Care Clinical Impression: Chest pain, Back pain, Arm numbness Condition: Stable Instructions: ED Chest Pain Noncardiac Ch Prescriptions: Cyclobenzaprine [Flexeril] 10 mg PO TID PRN #20 tablet PRN Reason: Spasms Comments: Thank you for allowing us to care for you today at [facility]. All of the testing performed in the emergency department today was very reassuring. Your EKG, chest x-ray, lab work were all within normal limits. I would like you to continue to follow-up carefully with your primary care doctor concerning the tender mass in the left lower quadrant of your left breast. I will be discharging you with some medication that you will be able to take at home. In addition to this, [id number] medications such as Tylenol and Motrin can also be very helpful. Please stay well-hydrated and get plenty of rest. If it anytime you have any new or worsening symptoms please not hesitate to return to the emergency department.
[2021-03-26 09:07] LABS: BASOPHILS % (AUTO) 0.4 %; HGB - HEMOGLOBIN 12.3 g/dL (12.0-16.0); LYMPHOCYTES # (AUTO) 1.4 10^3/uL (1.5-3.5); LYMPHOCYTES % (AUTO) 19.6 %; MEAN CORPUSCULAR HEMOGLOBIN 26.7 pg (27.0-31.0); MEAN CORPUSCULAR HGB CONC 31.5 g/dL (32.0-36.0); MEAN CORPUSCULAR VOLUME 84.6 fL (81.0-99.0); MONOCYTES # (AUTO) 0.4 10^3/uL (0.0-1.0); MONOCYTES % (AUTO) 5.3 %; NEUTROPHILS # (AUTO) 5.5 10^3/uL (1.5-6.6); NEUTROPHILS % (AUTO) 74.4 %; PLT - PLATELET COUNT 351 10^3/uL (130-450); RED BLOOD COUNT 4.61 10^6/uL (4.20-5.40); RED CELL DISTRIBUTION WIDTH 13.2 % (12.0-15.0); WHITE BLOOD COUNT 7.4 x10^3/uL (4.8-10.8)
[2021-03-26 09:22] LABS: ALBUMIN 4.1 g/dL (3.2-5.5); ALBUMIN/GLOBULIN RATIO 1.2 (1.0-2.2); BILIRUBIN,TOTAL 0.6 mg/dL (0.2-1.0); CALCIUM 9.2 mg/dL (8.5-10.3); CREATININE 0.7 mg/dL (0.4-1.0); TOTAL PROTEIN 7.6 g/dL (6.7-8.2)
[2021-03-26 09:30] LABS: HCG UR QUAL NEGATIVE
--- NOTE | 2021-03-26 09:42 | XRAY Report ---
PROCEDURE: Chest 1 View X-Ray INDICATIONS: Chest pain TECHNIQUE: One view of the chest was acquired. COMPARISON: 12/21/2020 FINDINGS: Overlying EKG wires. Surgical changes and devices: None. Lungs and pleura: No pleural effusions or pneumothorax. Lungs are clear. Mediastinum: Mediastinal contours appear normal. Heart size is normal. Bones and chest wall: No suspicious bony lesions. Overlying soft tissues appear unremarkable. IMPRESSION: No evidence of an acute cardiopulmonary abnormality. Reviewed by: Rey Figueroa DO on 03/26/2021 8:40 AM JOSE Approved by: Rey Figueroa DO on 03/26/2021 8:40 AM JOSE Station ID: [id number]
[2021-03-26 11:43] VITALS: BP 137/90
== END 2021-03-26 12:02 | disposition home or self-care (01) ==
LOC: ED 08:16
DX: R07.9 Chest pain, unspecified (principal); M54.9 Dorsalgia, unspecified; R20.0 Anesthesia of skin; R11.0 Nausea; N63.20 Unspecified lump in the left breast, unspecified quadrant; I10 Essential (primary) hypertension; E03.9 Hypothyroidism, unspecified
CPT/HCPCS: 36415; 80053; 81025; 83690; 84484; 85025; 85379; 93005; 96374; 99283

== ENCOUNTER 2021-04-08 13:54 | Outpatient (CLI) | payer MEDICAID ==
--- NOTE | 2021-04-11 08:21 | Ultrasound Report ---
LIMITED ULTRASOUND OF LEFT BREAST: 04/08/2021 CLINICAL: Diffuse left breast pain. No prior breast imaging were available for comparison. Lung bases on CT chest 09/20/2020. Color flow and real-time ultrasound of the left breast 2-4 o'clock region were performed. Rivera scale images of the real-time examination were reviewed. No significant abnormalities were seen sonographically in the left breast. Incidental small lymph nod e with normal morphology at the lateral chest wall 14 cm from the nipple. IMPRESSION: NEGATIVE There is no sonographic evidence of malignancy in the region of pain. Exam findings were conveyed to the patient. Patient is advised to monitor for significant change. Cli nical follow-up as needed. Return to annual mammogram screening schedule is recommended. This exam was interpreted at Station ID: [id number]. Electronically Signed By: Manuel Kwan M.D. slc/:04/08/2021 15:06:42 Ultrasound BI-RADS: 1 Negative BI-RADS CATEGORY: (1) - 1 RECOMMENDATION: (ANNUAL) - Recommend routine annual screening mammography. [id number] return to screening LATERALITY: (B)
== END 2021-04-08 13:55 | disposition home or self-care (01) ==
LOC: DI 13:54
PROVIDERS: ATTEND Family Medicine
DX: N64.4 Mastodynia (principal)

== ENCOUNTER 2021-05-26 12:26 | Outpatient (CLI) | payer MEDICAID ==
[2021-05-26 13:31] LABS: H. PYLORIS ANTIGEN STL NEGATIVE (Negative)
== END 2021-05-26 12:27 | disposition home or self-care (01) ==
LOC: LAB 12:26
PROVIDERS: ATTEND Surgery
DX: K52.9 Noninfective gastroenteritis and colitis, unspecified (principal); A04.72 Enterocolitis due to Clostridium difficile, not specified as recurrent
CPT/HCPCS: 81599; 83630; 87177; 87209; 87338; 87493

== ENCOUNTER 2021-06-17 10:42 | Emergency (ER) | payer MEDICAID ==
--- NOTE | 2021-06-17 11:11 | ED Physician Documentation ---
PD HPI CHEST PAIN - Stated complaint Stated Complaint: CHEST PX, TINGLING, FATIGUE - Chief complaint Chief Complaint: Cardiac - History obtained from History obtained from: Patient - History of Present Illness Timing - onset: How many months ago (1-2 months of intermittent left chest pain, without pattern of eating, activity, movement. Occasionally hurting and becoming more frequent. Local to left chest laterally. Pain with movement of torso at times. No cough/dyspnea.) Timing - onset during: Rest, Light activity, Other (randomly occurring. More noted with trunk movement, and not exertion per se.). No: Sleep, Eating Timing - details: Gradual onset, Intermittant Quality: Aching, Sharp, Pain Location: Left chest (anterolateral chest below breast.) Radiation: No: Jaw, Neck, Back Worsened by: Movement, Palpation. No: Exertion, Inspiration, Eating Associated symptoms: No: Shortness of air, Nausea, Feeling faint / dizzy, Cough Similar symptoms before: Has not had sx before Recently seen: Clinic (went to PCP and was Rx Ibuprofen PRN. No diagnosis. Had ultrasound of the area outpt, per patient, that was normal.) Review of Systems Constitutional: denies: Fever, Chills Nose: denies: Rhinorrhea / runny nose, Congestion Throat: denies: Sore throat Cardiac: reports: Chest pain / pressure. 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 : None HEENT: None Psych: None Musculoskeletal: None Derm: None - Past Surgical History Past Surgical History: Yes General: Cholecystectomy /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: section HEENT: Tonsil/Adenoidectomy - Present Medications Home Medications: Ambulatory Orders Medication Instructions Recorded Confirmed Famotidine [Pepcid] 20 mg PO BID #60 tablet 11/25/20 12/21/20 Metoprolol Succinate [Toprol Xl] 25 mg PO DAILY #30 tablet 11/25/20 03/26/21 Cyclobenzaprine [Flexeril] 10 mg PO TID PRN #20 tablet 03/26/21 Acetaminophen [Acetaminophen Extra 500 mg PO QID PRN #50 tablet 06/17/21 Strength] HYDROcod/ACETAM 5/325 [[place] 5/325] 1 ea PO Q6H PRN #14 tablet 06/17/21 Meloxicam [Mobic] 7.5 mg PO BID 10 Days #20 tablet 06/17/21 dexAMETHasone [Decadron] 4 mg PO DAILY #5 tablet 06/17/21 - Allergies Allergies/Adverse Reactions: Allergies Allergy/AdvReac Type Severity Reaction Status Date / Time morphine Allergy Dizziness Verified 06/17/21 10:48 oxycodone HCl * Allergy Headache Verified 12/21/20 12:42 [From Percocet] - Social History Does the pt smoke?: No Smoking Status: Never smoker Does the pt drink ETOH?: No Does the pt have substance abuse?: No - Immunizations Immunizations are current?: Yes - POLST Patient has POLST: No PD ED PE NORMAL - Vitals Vital signs reviewed: Yes - General General: Alert and oriented X 3, No acute distress (she can elicit it hurting more with stretching of the area (bending torso to the right or twisting). ), Well developed/nourished - HEENT HEENT: Pharynx benign - Neck Neck: Supple, no meningeal sign, No adenopathy - Cardiac Cardiac: RRR, No murmur - Respiratory Respiratory: Clear bilaterally, Other (some chestwall tenderness left lower costal margin and anterolateral lower ribs. No rash nor sores. ) - Abdomen Abdomen: Soft, Non tender - Back Back: No CVA TTP - Derm Derm: Normal color - Extremities Extremities: Normal ROM s pain, No edema, No calf tenderness / cord - Neuro Neuro: Alert and oriented X 3, No motor deficit, Normal speech Results - Vitals Vitals: Vital Signs - 24 hr 06/17/21 06/17/21 06/17/21 10:48 10:56 12:53 Temperature 37.1 C 37.1 C Heart Rate 88 88 85 Respiratory 18 18 19 Rate Blood Pressure 121/78 121/78 140/90 H O2 Saturation 99 99 99 Oxygen O2 Source Room air - EKG (time done) 10:48 Rate: Rate (enter#) (99) Rhythm: NSR [place]: Normal Intervals: Normal HI QRS: Normal Ischemia: Normal ST segments. No: ST elevation c/w ischemia, ST depression - Labs Labs: Laboratory Tests 06/17/21 06/17/21 06/17/21 11:03 11:03 11:03 WBC 8.6 RBC 4.83 Hgb 13.2 Hct 40.1 MCV 83.0 MCH 27.3 MCHC 32.9 RDW 13.3 Plt Count 389 MPV 10.2 Neut # (Auto) 6.2 Lymph # (Auto) 1.8 [place] # (Auto) 0.5 Eos # (Auto) 0.0 Baso # (Auto) 0.0 Absolute Nucleated RBC 0.00 Nucleated RBC % 0.0 D-Dimer Sodium 137 Potassium 4.0 Chloride 104 Carbon Dioxide 23 Anion Gap 10.0 BUN 12 Creatinine 0.5 Estimated GFR (MDRD) 150 Glucose 118 H Calcium 9.6 Total Bilirubin 0.5 AST 58 H ALT 90 H Alkaline Phosphatase 75 Troponin I High Sens < 2.3 L B-Natriuretic Peptide Total Protein 8.1 Albumin 4.0 Globulin 4.1 Albumin/Globulin Ratio 1.0 Lipase 29 06/17/21 06/17/21 12:10 12:10 WBC RBC Hgb Hct MCV MCH MCHC RDW Plt Count MPV Neut # (Auto) Lymph # (Auto) [place] # (Auto) Eos # (Auto) Baso # (Auto) Absolute Nucleated RBC Nucleated RBC % D-Dimer 204.7 Sodium Potassium Chloride Carbon Dioxide Anion Gap BUN Creatinine Estimated GFR (MDRD) Glucose Calcium Total Bilirubin AST ALT Alkaline Phosphatase Troponin I High Sens B-Natriuretic Peptide 7 Total Protein Albumin Globulin Albumin/Globulin Ratio Lipase - Rads (name of study) chest xray Radiology: Prelim report reviewed (normal), See rad report PD MEDICAL DECISION MAKING - ED course Complexity details: considered differential (left chest pain for over a month. Can screen for carditis, effusion, pneumonia, PE, etc. Clinically does seem like costchondirits. ), d/w patient Departure - Departure Disposition: 01 Home, Self Care Clinical Impression: Acute costochondritis Chest pain Qualifiers: Chest pain type: precordial pain Qualified Code(s): R07.2 - Precordial pain Condition: Stable Record reviewed to determine appropriate education?: Yes Instructions: ED Chest Pain Costochondritis Follow-Up: Spring Hernandez DO [Primary Care Provider] - Prescriptions: Acetaminophen [Acetaminophen Extra Strength] 500 mg PO QID PRN #50 tablet PRN Reason: Pain dexAMETHasone [Decadron] 4 mg PO DAILY #5 tablet Meloxicam [Mobic] 7.5 mg PO BID 10 Days #20 tablet HYDROcod/ACETAM 5/325 [[place] 5/325] 1 ea PO Q6H PRN #14 tablet PRN Reason: Pain Comments: Your EKG, chest x-ray, blood tests are normal here without any signs of pneumonia, collapsed lung, heart failure, heart attack, blood clots, anemia, diabetes, electrolyte problems. Presume your diagnosis is still chest wall inflammation. We can treat it with anti-inflammatories of meloxicam twice daily for 10 days. Also Decadron steroid anti-inflammatory daily for 3 days. To that add Tylenol 500 mg 4 times a day regularly for the next several days or so. Alternatively can use hydrocodone every 6 hours instead for worse pain at times. I would anticipate improvement over the next 3 to 5 days and resolved within a week. Follow-up with your primary care if not improving well. I transmitted your prescription to [facility]. I am prescribing a short course of narcotic pain medication for you. These are potentially dangerous and addictive medications that should be used carefully. These medications may constipate you. Take an [id number] stool softener such as docusate twice daily with plenty of water while taking these medications. If you go 24 hours without a bowel movement, take [id number] MiraLAX, per package instructions. Do not drink or drive while taking these medications. If you received narcotic or sedating medications while in the emergency department do not drive for 24 hours. Store this medication in a safe, secure place and out of reach of children. It is a violation of federal law to give or sell this medication to another person or to use in a manner other than prescribed. The ED will not refill narcotic prescriptions, including prescriptions lost or stolen. You can dispose of unwanted medications at the [facility]'s office or at several pharmacies such as [facility]. Discharge Date/Time: 06/17/21 13:37
[2021-06-17 11:18] LABS: BASOPHILS % (AUTO) 0.4 %; EOSINOPHILS % (AUTO) 0.1 %; HCT - HEMATOCRIT 40.1 % (37.0-47.0); HGB - HEMOGLOBIN 13.2 g/dL (12.0-16.0); LYMPHOCYTES # (AUTO) 1.8 10^3/uL (1.5-3.5); LYMPHOCYTES % (AUTO) 21.4 %; MEAN CORPUSCULAR HEMOGLOBIN 27.3 pg (27.0-31.0); MEAN CORPUSCULAR HGB CONC 32.9 g/dL (32.0-36.0); MEAN PLATELET VOLUME 10.2 fL (7.9-10.8); MONOCYTES # (AUTO) 0.5 10^3/uL (0.0-1.0); MONOCYTES % (AUTO) 5.3 %; NEUTROPHILS # (AUTO) 6.2 10^3/uL (1.5-6.6); NEUTROPHILS % (AUTO) 72.3 %; PLT - PLATELET COUNT 389 10^3/uL (130-450); RED BLOOD COUNT 4.83 10^6/uL (4.20-5.40); RED CELL DISTRIBUTION WIDTH 13.3 % (12.0-15.0); WHITE BLOOD COUNT 8.6 x10^3/uL (4.8-10.8)
[2021-06-17 11:23] LABS: BILIRUBIN,TOTAL 0.5 mg/dL (0.2-1.0); CALCIUM 9.6 mg/dL (8.5-10.3); CREATININE 0.5 mg/dL (0.4-1.0); TOTAL PROTEIN 8.1 g/dL (6.7-8.2)
--- NOTE | 2021-06-17 11:41 | XRAY Report ---
PROCEDURE: Chest 1 View X-Ray INDICATIONS: Chest pain TECHNIQUE: One view of the chest was acquired. COMPARISON: March 26, 2021 FINDINGS: SUPPORT DEVICES: None. LUNGS/PLEURA: No focal consolidation, pleural effusion or space-occupying pneumothorax. MEDIASTINUM: The cardiomediastinal silhouette is within normal limits. BONES/SOFT TISSUES: No acute abnormality. IMPRESSION: 1.No acute cardiopulmonary abnormality. Reviewed by: Devin Valenzuela MD on 06/17/2021 11:40 AM [facility] Approved by: Devin Valenzuela MD on 06/17/2021 11:40 AM [facility] Station ID: [id number]
[2021-06-17] MEDS ORDERED: ACETAMINOPHEN 325 MG TABLET PO STA (11:58)
[2021-06-17] MEDS ORDERED: NAPROXEN 250 MG TABLET PO STA (11:58)
[2021-06-17] MEDS ORDERED: DEXAMETHASONE 10 MG/ML VIAL PO STA (11:59)
[2021-06-17] MEDS ORDERED: CHERRY SYRUP 10 ML UDC PO ONE (11:59)
[2021-06-17 13:37] VITALS: BP 140/90
== END 2021-06-17 13:37 | disposition home or self-care (01) ==
LOC: ED 10:42
DX: M94.0 Chondrocostal junction syndrome [Tietze] (principal); R07.2 Precordial pain
CPT/HCPCS: 36415; 71045; 80053; 83690; 83880; 84484; 85025; 85379; 93005; 99283; 99284; A9270

== ENCOUNTER 2021-07-14 09:34 | Outpatient (CLI) | payer MEDICAID ==
[2021-07-14 13:16] LABS: ALBUMIN 3.8 g/dL (3.2-5.5); ALKALINE PHOSPHATASE 62 IU/L (42-121); ALT ALANINE AMINOTRANSFERASE 55 IU/L (10-60); AST ASPARTATE AMINOTRANSFERASE 24 IU/L (10-42); BILIRUBIN,TOTAL 0.6 mg/dL (0.2-1.0); BUN - BLOOD UREA NITROGEN 14 mg/dL (6-20); CALCIUM 9.2 mg/dL (8.5-10.3); CARBON DIOXIDE - CO2 24 mmol/L (21-32); CHLORIDE 102 mmol/L (101-111); CREATININE 0.6 mg/dL (0.4-1.0); GFR - MDRD 122 (>89); GLUCOSE 83 mg/dL (70-100); POTASSIUM 3.5 mmol/L (3.5-5.0); SODIUM 135 mmol/L (135-145); TOTAL PROTEIN 7.5 g/dL (6.7-8.2)
[2021-07-14 13:19] LABS: THYROID STIMULATING HORMONE 3.49 uIU/mL (0.34-5.60)
[2021-07-14 13:27] LABS: BASOPHILS % (AUTO) 0.2 %; EOSINOPHILS % (AUTO) 0.2 %; HCT - HEMATOCRIT 41.4 % (37.0-47.0); HGB - HEMOGLOBIN 13.4 g/dL (12.0-16.0); LYMPHOCYTES # (AUTO) 3.2 10^3/uL (1.5-3.5); LYMPHOCYTES % (AUTO) 25.1 %; MEAN CORPUSCULAR HEMOGLOBIN 27.5 pg (27.0-31.0); MEAN CORPUSCULAR HGB CONC 32.4 g/dL (32.0-36.0); MEAN PLATELET VOLUME 10.8 fL (7.9-10.8); MONOCYTES # (AUTO) 0.6 10^3/uL (0.0-1.0); MONOCYTES % (AUTO) 4.4 %; NEUTROPHILS # (AUTO) 8.8 10^3/uL (1.5-6.6); NEUTROPHILS % (AUTO) 69.5 %; PLT - PLATELET COUNT 398 10^3/uL (130-450); RED BLOOD COUNT 4.87 10^6/uL (4.20-5.40); RED CELL DISTRIBUTION WIDTH 13.4 % (12.0-15.0); WHITE BLOOD COUNT 12.6 x10^3/uL (4.8-10.8)
[2021-07-14 13:35] LABS: CRP - C-REACTIVE PROTEIN < 1.0 mg/dL (0-1.0)
[2021-07-16 12:11] LABS: ANA SCREEN NEGATIVE (NEGATIVE)
== END 2021-07-14 09:35 | disposition home or self-care (01) ==
LOC: LAB.N 09:34
PROVIDERS: ATTEND Physician Assistant Medical
DX: R10.84 Generalized abdominal pain (principal); R07.89 Other chest pain; K52.9 Noninfective gastroenteritis and colitis, unspecified; E03.9 Hypothyroidism, unspecified; D64.9 Anemia, unspecified
CPT/HCPCS: 36415; 80053; 81599; 82728; 83516; 84443; 85025; 85651; 86003; 86038; 86140; 86225; 86255

== ENCOUNTER 2021-08-05 11:25 | Outpatient (CLI) | payer MEDICAID ==
--- NOTE | 2021-08-09 11:30 | Ultrasound Report ---
LIMITED ULTRASOUND OF LEFT BREAST AND AXILLA: 08/05/2021 CLINICAL: Occasional left breast pain. Comparison is made to exam dated: 04/08/2021 ultrasound - [facility]. Color flow and real-time ultrasound of the left breast 2-4 o'clock, and axilla regions were performe d on the areas of interest. Rivera scale images of the real-time examination were reviewed. There are multiple normal appearing lymph nodes in the left axillary tail. IMPRESSION: BENIGN There is no sonographic evidence of malignancy. The multiple normal lymph nodes are benign. There is no abnormality seen in the left breast to correspond with the pain, however, clinical follow up is recommended. This exam was interpreted at Station ID: [id number]. Electronically Signed By: Jessica Al M.D. lk/:08/05/2021 12:35:48 Ultrasound BI-RADS: 2 Benign BI-RADS CATEGORY: (2) - 2 Unspecified - other recall n/a LATERALITY: (B)
== END 2021-08-05 11:26 | disposition home or self-care (01) ==
LOC: DI 11:25
PROVIDERS: ATTEND Physician Assistant Medical
DX: R07.89 Other chest pain (principal)

== ENCOUNTER 2021-08-12 13:55 | Outpatient (CLI) | payer MEDICAID ==
[2021-08-12 14:13] LABS: BASOPHILS % (AUTO) 0.3 %; EOSINOPHILS % (AUTO) 0.1 %; HGB - HEMOGLOBIN 12.8 g/dL (12.0-16.0); LYMPHOCYTES # (AUTO) 1.9 10^3/uL (1.5-3.5); LYMPHOCYTES % (AUTO) 19.1 %; MEAN CORPUSCULAR HEMOGLOBIN 27.6 pg (27.0-31.0); MEAN CORPUSCULAR HGB CONC 32.8 g/dL (32.0-36.0); MEAN CORPUSCULAR VOLUME 84.1 fL (81.0-99.0); MEAN PLATELET VOLUME 9.6 fL (7.9-10.8); MONOCYTES # (AUTO) 0.5 10^3/uL (0.0-1.0); MONOCYTES % (AUTO) 5.3 %; NEUTROPHILS # (AUTO) 7.5 10^3/uL (1.5-6.6); NEUTROPHILS % (AUTO) 74.9 %; PLT - PLATELET COUNT 400 10^3/uL (130-450); RED BLOOD COUNT 4.64 10^6/uL (4.20-5.40); RED CELL DISTRIBUTION WIDTH 12.8 % (12.0-15.0)
== END 2021-08-12 13:56 | disposition home or self-care (01) ==
LOC: LAB 13:55
PROVIDERS: ATTEND Physician Assistant Medical
DX: D72.829 Elevated white blood cell count, unspecified (principal)
CPT/HCPCS: 36415; 85025

== ENCOUNTER 2021-08-30 12:41 | Outpatient (CLI) | payer MEDICAID ==
--- NOTE | 2021-08-30 12:42 | CARDIAC PROCEDURE NOTE ---
Stress Test Report Service Date: 08/30/21 Service Time: 12:30 Ordering Provider: Alonso Christian MD Indication for Test: Assess chest discomfort. Significant Medical History: -Antonia has a complex medical history, including chronic GI issues ("colitis", s/p cholecystectomy, s/p C.Diff infection), morbid obesity, hypertension, impaired fasting glucose and migraine headaches. She mentions that she is coming to the end of a challenging year healthwise, with multiple investigations geared towards trying to elucidate whether there is any underlying explanation for these multiple conditions. 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 She does live in a 2-story house and goes up and down several times daily, without much limitation. -In June of this year she was evaluated at the [facility] for chest pain, that she stated had been present on and off over a period of about 2 months, without relation to physical activity or food ingestion. There was concern that the discomfort might be exacerbated with truncal movement, and it has always been worsened by physical pressure/palptaion over her sternum. Following review of non-ischemic EKG and normal troponin level a plan was initiated to treat the discomfort as costochondritis, with a short-course of oral steroid and meloxicam; she subsequently experienced a symptom complex that included increased shortness of breath, numbness and tingling all over and worsened chest discomfort. Meloxicam was D/C'd and replaced with acetaminophen. -She was having a general reduction in chest pain frequency and severity, but reports that about 2 weeks ago it heightened, to the point where it is again present essentially constantly. There has been discussion about a possible trial of treatment with an alternative corticosteroid and she is planning to see a [facility] for an overall evaluation. Cardiac Risk Factors: Positive for hypertension, impaired fasting glucose and family history of CAD in her grandmother. She does not have a significant tobacco smoking history and denies having hyperlipidemia. Type of Stress Test: ETT with Myocardial Perfusion Imaging Procedure: -Exercise Treadmill Test- After signing informed consent, the patient performed treadmill exercise using a Tomas protocol. The patient exercised for 6 minutes and 21 seconds and achieved a peak heart rate of 171 (87 percent predicted maximum heart rate for age), and an estimated workload of 7.6 METS. The test was terminated due to fatigue/shortness of breath. Resting heart rate: 100 Peak heart rate: 171 Normal response to exercise. Resting BP: 130/84 Peak BP: 188/87 Normal BP response to exercise. Rhythm during exercise: Sinus rhythm throughout. Symptoms: After starting the test a level of chest discomfort of 3/10, she only had an incremental increase (to "5") following the injection of 99Tc-Myoview. She reported increased shortness of breath and leg fatigue as limiting. EKG at rest showed normal sinus rhythm, fully within normal limits. EKG at peak stress showed no ischemia by EKG criteria. In Recovery heart rate and blood pressure rapidly/normally returned to near baseline levels. Nuclear imaging performed following peak stress, will be repeated at rest tomorrow and image interpretation will be reported separately. Kj Mike MD, was present throughout this treadmill stress study and supervised it in its entirety. Summary: 1) Exercise tolerance markedly decreased for age an gender as evidenced by SVETLANA of 37.5%. 2) Normal resting EKG. 3) Adequate level of exercise was achieved on this treadmill stress test. 4) Normal BP response to exercise. 5) No ischemic changes by EKG criteria were seen at peak stress. 6) Analysis of gated nuclear images reveals normal left ventricular size and systolic function; SPECT analysis reveals a small anteroapical defect present at rest and with stress (in the supine position); with stress imaging in the prone position the defect is less evident. Although the defect could indicate a small infarct, reduction of its evidence in the prone position is suggestive of breast attenuation. See separate report for more detail. CONCLUSIONS: 1) No evidence of inducible ischemia by symptoms and EKG. 2) Myocardial perfusion imaging results cannot conclusively exclude a small apical infarct, but breast attenuation is a more likely explanation given patient's age and body habitus. 3) The patient's history is highly suggestive of an inflammatory mechanism for costochondritis.
--- NOTE | 2021-08-31 16:52 | Nuclear Medicine Report ---
PROCEDURE: Rest and exercise myocardial perfusion SPECT with gated imaging and ejection fraction INDICATIONS: CHEST PAIN RADIOPHARMACEUTICAL: 25.8 mCi Tc-99m Myoview IV at rest and 25.0 mCi Tc-99m Myoview IV at peak exerc ise. Oqy-obl-dzjnsofl was performed. TECHNIQUE: Radiopharmaceutical was injected at peak stress test, and also at rest. SPECT images wer e obtained. SPECT myocardial perfusion images were displayed in short axis, horizontal long axis, an d vertical long axis views. Gated images were reviewed using AutoQUANT software. COMPARISON: None available. FINDINGS: Raw data: There is good myocardial labeling by radiotracer. No significant motion artifacts. Lung- to-heart ratio is 0.31 (normal is less than 0.46 for tetrafosmin tracer). Left ventricle function: Gated images demonstrate normal left ventricle wall thickening. No segment al wall motion abnormality. No transient ischemic dilation; TID is 0.83 (normal less than 1.30). Th e left ventricle resting end-diastolic volume is 123 mL. Left ventricle stress ejection fraction is 53%; normal values are above 45%. Myocardial perfusion: There is a small, mild, fixed perfusion defect in the anterior apex, which cou ld represent a small myocardial infarct. The defect is improved not resolved on prone imaging, sugges ting a degree of breast attenuation artifact. IMPRESSION: 1. Probably abnormal myocardial perfusion images. There is a small, mild, fixed perfusion defect in t he anterior apex, suspicious for a small myocardial infarct. Presence of breast attenuation artifact makes the conclusion less definitive. 2. No reversible perfusion defect to suggest myocardial ischemia. 3. Normal left ventricular volume and systolic function. 4. Please correlate with stress EKG result. PQRS ATTESTATIONS: Measure 322 - Is this imaging test primarily performed on a low-risk surgery patient for preoperative evaluation within 30 days preceding their low-risk non-cardiac surgery? Low-risk surgery is defined as cardiac or myocardial infarction less than 1%, including (but not limited to) endoscopic pr ocedures, superficial procedures, cataract surgery, and excisional breast surgery: Answer: No Measure 323 - Is this imaging test performed primarily for the monitoring of an asymptomatic patient who had percutaneous coronary intervention on the visit date or within 2 years of the visit date? An swer: No Measure 324 - Is this imaging test performed primarily for the initial detection and risk assessment on an asymptomatic, low coronary heart disease patient? Low CHD risk definition = clinicians should consider the maximum number of available patient factors used to estimate risk based on [place] (A TP III criteria), typically age, gender, diabetes, smoking status, and use of blood pressure medicati on, and integrate age appropriate estimates for missing elements, such as LDL or standard blood press ure. Answer: No Reviewed by: Kim Weston MD on 08/31/2021 4:51 PM PDT Approved by: Kim Weston MD on 08/31/2021 4:51 PM PDT Station ID: [id number]
== END 2021-08-30 12:42 | disposition home or self-care (01) ==
LOC: DI 12:41
PROVIDERS: ATTEND Family Medicine
DX: R07.89 Other chest pain (principal); I10 Essential (primary) hypertension
CPT/HCPCS: 78452; 93017; A9500; 93016; 93018

== ENCOUNTER 2021-09-07 18:37 | Emergency (ER) | payer MEDICAID ==
[2021-09-07 19:10] LABS: BASOPHILS # (AUTO) 0.1 10^3/uL (0.0-0.1); BASOPHILS % (AUTO) 0.4 %; HCT - HEMATOCRIT 39.6 % (37.0-47.0); HGB - HEMOGLOBIN 12.9 g/dL (12.0-16.0); LYMPHOCYTES # (AUTO) 2.2 10^3/uL (1.5-3.5); LYMPHOCYTES % (AUTO) 16.8 %; MEAN CORPUSCULAR HEMOGLOBIN 27.3 pg (27.0-31.0); MEAN CORPUSCULAR HGB CONC 32.6 g/dL (32.0-36.0); MEAN CORPUSCULAR VOLUME 83.7 fL (81.0-99.0); MEAN PLATELET VOLUME 9.6 fL (7.9-10.8); MONOCYTES # (AUTO) 0.8 10^3/uL (0.0-1.0); MONOCYTES % (AUTO) 6.4 %; NEUTROPHILS # (AUTO) 9.7 10^3/uL (1.5-6.6); NEUTROPHILS % (AUTO) 75.7 %; PLT - PLATELET COUNT 368 10^3/uL (130-450); RED BLOOD COUNT 4.73 10^6/uL (4.20-5.40); RED CELL DISTRIBUTION WIDTH 12.5 % (12.0-15.0); WHITE BLOOD COUNT 12.8 x10^3/uL (4.8-10.8)
[2021-09-07 19:24] LABS: ALBUMIN 3.9 g/dL (3.2-5.5); ALBUMIN/GLOBULIN RATIO 0.9 (1.0-2.2); BILIRUBIN,TOTAL 0.5 mg/dL (0.2-1.0); CALCIUM 9.6 mg/dL (8.5-10.3); CREATININE 0.7 mg/dL (0.4-1.0); POTASSIUM 3.8 mmol/L (3.5-5.0); TOTAL PROTEIN 8.3 g/dL (6.7-8.2)
--- NOTE | 2021-09-07 19:38 | XRAY Report ---
PROCEDURE: Chest 1 View X-Ray INDICATIONS: Chest pain TECHNIQUE: One view of the chest was acquired. COMPARISON: Chest x-ray one view, 06/17/2021 FINDINGS: Surgical changes and devices: None. Lungs and pleura: No pleural effusions or pneumothorax. Lungs are clear. Mediastinum: Mediastinal contours appear normal. Heart size is normal. Bones and chest wall: No suspicious bony lesions. Overlying soft tissues appear unremarkable. IMPRESSION: No acute cardiopulmonary disease. Reviewed by: Kim Weston MD on 09/07/2021 7:36 PM PDT Approved by: Kim Weston MD on 09/07/2021 7:36 PM PDT Station ID: [id number]
[2021-09-07] MEDS ORDERED: lisinopriL 5 MG TABLET PO STA (20:22)
--- NOTE | 2021-09-07 21:16 | ED Physician Documentation ---
History of Present Illness - Stated complaint Stated Complaint: CP,DIZZY,NAUSEA,FACE NUMB - Chief complaint Chief Complaint: Cardiac - Additonal information Additional information: 25-year-old female presents the emergency department with many days of substernal chest pain and pressure. She reports that she has pain in her jaw and face. She underwent a cardiac stress test a few days ago which was negative. She also reports that for many months she has been having generalized body aches and pains. She was seen here in June and diagnosed with costochondritis. She had an allergic reaction to the meloxicam so was unable to take it. She has been referred to rheumatology for follow-up of her generalized myalgias. She states that today when she was talking with a friend she misunderstood what he was saying and he called her confused that she fears that she could be having a heart attack or a stroke. She has no focal weakness numbness in her extremities or slurred speech. She presents appearing very anxious but denies that she is anxious or upset. She does have a notably elevated blood pressure but is denying shortness of air. Review of Systems Constitutional: reports: Myalgias. denies: Fever, Chills Eyes: reports: Reviewed and negative Ears: reports: Reviewed and negative Nose: reports: Reviewed and negative Throat: reports: Reviewed and negative Cardiac: reports: Chest pain / pressure, Palpitations Respiratory: denies: Dyspnea, Cough GI: reports: Reviewed and negative : reports: Reviewed and negative Skin: reports: Reviewed and negative PD PAST MEDICAL HISTORY - Past Medical History Past Medical History: Yes Cardiovascular: Hypertension Respiratory: None Neuro: None Endocrine/Autoimmune: HyPOthyroidism GI: None GROUP DYNAMICS INSTRUCTOR: None : None HEENT: None Psych: None Musculoskeletal: None Derm: None - Past Surgical History Past Surgical History: Yes General: Cholecystectomy /GROUP DYNAMICS INSTRUCTOR: section HEENT: Tonsil/Adenoidectomy - Present Medications Home Medications: Ambulatory Orders Medication Instructions Recorded Confirmed Metoprolol Succinate [Toprol Xl] 25 mg PO DAILY #30 tablet 11/25/20 09/07/21 Acetaminophen [Acetaminophen Extra 500 mg PO QID PRN #50 tablet 06/17/21 09/07/21 Strength] lisinopriL [Lisinopril] 10 mg PO DAILY #30 tablet 09/07/21 - Allergies Allergies/Adverse Reactions: Allergies Allergy/AdvReac Type Severity Reaction Status Date / Time morphine Allergy Dizziness Verified 09/07/21 18:51 oxycodone HCl * Allergy Headache Verified 09/07/21 18:51 [From Percocet] - Social History Does the pt smoke?: No Smoking Status: Never smoker Does the pt drink ETOH?: No Does the pt have substance abuse?: No - Immunizations Immunizations are current?: Yes - POLST Patient has POLST: No PD ED PE EXPANDED - General General: Alert, Anxious, Other (obese) - Cardiac Cardiac: Regular Rate, Radial strong equal, Pedal strong equal, Chest wall TTP (Tenderness to pressure of the left lateral chest wall near the mid sternum and just under the breast). No: Murmur Present - Respiratory Respiratory: Clear to ausultation jarrett. No: Distress, Labored - Abdomen Abdomen: Normal Bowel sounds. No: Tender to palpation - Derm Derm: Normal color, Warm and dry. No: Rash - Extremities Extremities: Normal. No: Deformity, Tenderness - Neuro Neuro: Alert and Oriented X 3, CNII-XII intact - GCS Eye Opening: Spontaneous Motor: Obeys Commands Verbal: Oriented Total: 15 Results - Vitals Vitals: Vital Signs - 24 hr 09/07/21 09/07/21 09/07/21 18:47 19:05 19:14 Temperature 36.9 C Heart Rate 99 95 94 Respiratory 18 20 18 Rate Blood Pressure 147/100 H 166/105 H 166/105 H O2 Saturation 99 99 99 09/07/21 09/07/21 09/07/21 20:05 20:12 21:32 Temperature 36.9 C Heart Rate 109 H 101 H 97 Respiratory 12 20 14 Rate Blood Pressure 197/122 H 151/101 H 147/101 H O2 Saturation 99 100 100 Oxygen O2 Source Room air - EKG (time done) 1847 Rate: Rate (enter#) (103) Rhythm: NSR Ringoes: Normal Intervals: Normal [place] QRS: Normal Ischemia: Non specific changes Compare to prior EKG: Unchanged from prior EKG Computer interpretation: Agree with computer - Labs Labs: Laboratory Tests 09/07/21 09/07/21 09/07/21 19:00 19:00 19:00 WBC 12.8 H RBC 4.73 Hgb 12.9 Hct 39.6 MCV 83.7 MCH 27.3 MCHC 32.6 RDW 12.5 Plt Count 368 MPV 9.6 Neut # (Auto) 9.7 H Lymph # (Auto) 2.2 Gage # (Auto) 0.8 Eos # (Auto) 0.0 Baso # (Auto) 0.1 Absolute Nucleated RBC 0.00 Nucleated RBC % 0.0 Sodium 137 Potassium 3.8 Chloride 102 Carbon Dioxide 26 Anion Gap 9.0 BUN 11 Creatinine 0.7 Estimated GFR (MDRD) 102 Glucose 100 Calcium 9.6 Total Bilirubin 0.5 AST 32 ALT 50 Alkaline Phosphatase 66 Troponin I High Sens < 2.3 L Total Protein 8.3 H Albumin 3.9 Globulin 4.4 H Albumin/Globulin Ratio 0.9 L Lipase 33 PD MEDICAL DECISION MAKING - ED course Complexity details: reviewed results, re-evaluated patient, d/w patient ED course: 25-year-old female who reports that she has had many months of substernal chest pain previously diagnosed with costochondritis. Recently underwent an cardiac stress test which was negative. She continues to have generalized body aches chest pain headache. No fevers. A COVID-19 test is pending as she is not vaccinated for COVID-19. She reports that her primary care doctor has made referral for her to a seo marketing specialist which given the chronicity of the symptoms I feels appropriate. She is noted to be markedly hypertensive here in the emergency department but denies a history of hypertension though she is on metoprolol. She has preserved renal function negative troponin negative chest x-ray. We will start her on lisinopril. Given that she is already had a stress test negative troponin etiology here is likely not cardiac. She does appear exceedingly anxious and I suspect that this may be contributing to her symptoms though she denies that she is having anxiety or worry. No new medications with the exception of lisinopril will be instituted today. She is advised follow-up with primary care provider to continue follow-up with referral to rheumatology Departure - Departure Disposition: 01 Home, Self Care Clinical Impression: Myalgia Chest pain Qualifiers: Chest pain type: other chest pain Qualified Code(s): R07.89 - Other chest pain Hypertension Qualifiers: Hypertension type: unspecified Qualified Code(s): I10 - Essential (primary) hypertension Condition: Stable Record reviewed to determine appropriate education?: Yes Instructions: ED Chest Pain O Follow-Up: Kaitlin Blanco PA-C [Primary Care Provider] - Prescriptions: lisinopriL [Lisinopril] 10 mg PO DAILY #30 tablet Comments: Antonia you were seen today in the emergency department for chest pain generalized body aches headache. Your screening labs are all essentially normal. Your EKG is no different than it was in June and the markers to check for heart attack are also negative. Your treadmill stress test completed last week was normal. Your screening labs today do not show any worrisome findings and your chest x- ray is normal. I suspect that you may have a rheumatologic process causing the generalized pains, chest pain headache. Please continue to follow through with the rheumatology referral placed by your primary care providers. Your blood pressure is markedly elevated today in the emergency department and I suspect that you would benefit from an additional blood pressure medication so I sent a prescription for lisinopril to [facility]. Please fill it begin taking tomorrow. I do recommend that you take your blood pressure every day at home at the same time and keep a journal of your blood pressures. If your symptoms are worsening please return to the ER Discharge Date/Time: 09/07/21 21:40
[2021-09-07 21:40] VITALS: BP 147/101
== END 2021-09-07 21:40 | disposition home or self-care (01) ==
LOC: ED 18:37
DX: R07.89 Other chest pain (principal); M79.10 Myalgia, unspecified site; I10 Essential (primary) hypertension; Z20.822 Contact with and (suspected) exposure to COVID-19
CPT/HCPCS: 36415; 71045; 80053; 83690; 84484; 85025; 87635; 93005; 99283; 99284; A9270

== ENCOUNTER 2021-12-30 14:57 | Outpatient (CLI) | payer MEDICAID ==
[2021-12-30 15:57] VITALS: BP 128/94
== END 2021-12-30 14:58 | disposition home or self-care (01) ==
LOC: MAC.MOP 14:57
PROVIDERS: ATTEND Nurse Practitioner Family
DX: R07.89 Other chest pain (principal); I10 Essential (primary) hypertension
CPT/HCPCS: 93242

== ENCOUNTER 2022-01-02 14:03 | Outpatient (CLI) | payer MEDICAID | END 2022-01-02 14:04 | disposition home or self-care (01) | LOC: MAC.INF 14:03 | PROVIDERS: ATTEND Physician Assistant Medical | DX: R07.89 Other chest pain (principal); I10 Essential (primary) hypertension | CPT/HCPCS: 93242 ==

== ENCOUNTER 2022-01-02 14:24 | Outpatient (CLI) | payer MEDICAID | END 2022-01-02 14:25 | disposition home or self-care (01) | LOC: LAB 14:24 | PROVIDERS: ATTEND Nurse Practitioner Family | DX: A53.9 Syphilis, unspecified (principal) | CPT/HCPCS: 36415; 86592 ==

== ENCOUNTER 2022-02-09 08:00 | Outpatient (CLI) | payer MEDICAID ==
[2022-02-09 22:48] LABS: CHLAMYDIA TRACHOMATIS DNA NEGATIVE (NEGATIVE); NEISSERIA GONORRHOEAE DNA NEGATIVE (NEGATIVE); TRICHOMONAS VAGINALIS DNA NEGATIVE (NEGATIVE)
== END 2022-02-09 23:59 | disposition home or self-care (01) ==
LOC: LAB 08:00
PROVIDERS: ATTEND Obstetrics & Gynecology
DX: Z20.2 Contact with and (suspected) exposure to infections with a predominantly sexual mode of transmission (principal)
CPT/HCPCS: 87491; 87591; 87661

== ENCOUNTER 2022-02-09 13:01 | Outpatient (CLI) | payer MEDICAID ==
[2022-02-10 02:07] LABS: HBsAG SCREEN Negative (Negative)
[2022-02-10 03:08] LABS: HCV AB <0.1 s/co ratio (0.0-0.9)
[2022-02-10 06:10] LABS: HIV SCREEN 4TH GENERATION Non Reactive (Non Reactive)
== END 2022-02-09 13:02 | disposition home or self-care (01) ==
LOC: LAB 13:01
PROVIDERS: ATTEND Obstetrics & Gynecology
DX: Z20.2 Contact with and (suspected) exposure to infections with a predominantly sexual mode of transmission (principal)
CPT/HCPCS: 36415; 86592; 86803; 87340; 87389

== ENCOUNTER 2022-02-13 08:00 | Outpatient (CLI) | payer MEDICAID ==
[2022-02-13 18:36] LABS: CHLAMYDIA TRACHOMATIS DNA NEGATIVE (NEGATIVE); NEISSERIA GONORRHOEAE DNA NEGATIVE (NEGATIVE)
[2022-02-13 21:09] LABS: BACTERIAL VAGINOSIS DNA NEGATIVE (NEGATIVE); CANDIDA GLABRATA DNA NEGATIVE (NEGATIVE); CANDIDA GROUP DNA NEGATIVE (NEGATIVE); CANDIDA KRUSEI DNA NEGATIVE (NEGATIVE); TRICHOMONAS VAGINALIS DNA NEGATIVE (NEGATIVE)
== END 2022-02-13 23:59 | disposition home or self-care (01) ==
LOC: LAB.N 08:00
PROVIDERS: ATTEND Physician Assistant Medical
DX: N76.0 Acute vaginitis (principal)
CPT/HCPCS: 81514; 87086; 87491; 87591; 87661

== ENCOUNTER 2022-02-26 17:23 | Emergency (ER) | payer MEDICAID ==
[2022-02-26 18:00] LABS: GLUCOSE, URINE (UA) NEGATIVE (NEGATIVE); KETONES,URINE (UA) TRACE mg/dL (NEGATIVE); LEUKOCYTE ESTERASE, URINE NEGATIVE (NEGATIVE); NITRITE,URINE NEGATIVE (NEGATIVE); OCCULT BLOOD,URINE LARGE (NEGATIVE); PH,URINE 5.5 PH (5.0-7.5); PROTEIN,URINE 30 mg/dL (NEGATIVE); UROBILINOGEN,URINE 0.2 (NORMAL) E.U./dL (NORMAL)
[2022-02-26 18:04] LABS: BILIRUBIN,URINE NEGATIVE (NEGATIVE); CLARITY,URINE BLOODY (CLEAR); HCG UR QUAL NEGATIVE; ICTOTEST,URINE NEGATIVE
[2022-02-26 18:05] LABS: BACTERIA,URINE Few /HPF (None Seen); MUCUS,URINE Few Strands; RBC,URINE TNTC /HPF (0-5); SQUAMOUS EPITHELIAL CELL,UR RARE Squamous (<= Few); WBC,URINE 0-3 /HPF (0-5)
[2022-02-26 18:16] LABS: BASOPHILS % (AUTO) 0.3 %; HCT - HEMATOCRIT 34.9 % (37.0-47.0); HGB - HEMOGLOBIN 11.4 g/dL (12.0-16.0); LYMPHOCYTES # (AUTO) 1.9 10^3/uL (1.5-3.5); MEAN CORPUSCULAR HGB CONC 32.7 g/dL (32.0-36.0); MEAN CORPUSCULAR VOLUME 82.5 fL (81.0-99.0); MONOCYTES # (AUTO) 0.6 10^3/uL (0.0-1.0); MONOCYTES % (AUTO) 5.8 %; NEUTROPHILS # (AUTO) 7.3 10^3/uL (1.5-6.6); NEUTROPHILS % (AUTO) 74.6 %; PLT - PLATELET COUNT 370 10^3/uL (130-450); RED BLOOD COUNT 4.23 10^6/uL (4.20-5.40); RED CELL DISTRIBUTION WIDTH 13.2 % (12.0-15.0); WHITE BLOOD COUNT 9.8 x10^3/uL (4.8-10.8)
[2022-02-26 18:29] LABS: ALBUMIN 4.2 g/dL (3.2-5.5); ALBUMIN/GLOBULIN RATIO 1.1 (1.0-2.2); BILIRUBIN,TOTAL 0.4 mg/dL (0.2-1.0); CALCIUM 9.3 mg/dL (8.5-10.3); CREATININE 0.7 mg/dL (0.4-1.0); POTASSIUM 3.3 mmol/L (3.5-5.0); TOTAL PROTEIN 8.2 g/dL (6.7-8.2)
[2022-02-26] MEDS ORDERED: ONDANSETRON 4 MG/2 ML VIAL IVP STA (18:37)
[2022-02-26] MEDS ORDERED: fentaNYL 100 MCG/2 ML VIAL IVP STA (18:37)
[2022-02-26] MEDS ORDERED: SODIUM CHLORIDE 0.9% 1,000 ML IV STA (18:52)
--- NOTE | 2022-02-26 19:16 | CT Report ---
PROCEDURE: Abdomen/Pelvis W INDICATIONS: diffuse abd pain, vomiting/diarrhea CONTRAST: IV CONTRAST: Optiray 320 ml: 100 PO CONTRAST: *NO PO CONTRAST TECHNIQUE: After the administration of IV contrast, 5 mm thick sections acquired from the diaphragms to the symp hysis. 5 mm thick coronal and sagittal reformats were acquired. For radiation dose reduction, the f ollowing was used: automated exposure control, adjustment of mA and/or kV according to patient size. COMPARISON: CT dated 09/20/2020 FINDINGS: Image quality: Excellent. ABDOMEN: Lung bases: Lung bases are clear. Heart size is normal. Solid organs: Liver and spleen are normal in size and enhancement. Gallbladder is surgically absent Biliary system is non dilated. Pancreas enhances normally. No adrenal nodules. Kidneys demonstra te normal size and enhancement, without hydronephrosis. Peritoneum and bowel: Bowel loops demonstrate normal wall thickness and caliber. No free fluid or a ir. Normal appendix. Nodes and vessels: No retroperitoneal or mesenteric adenopathy by size criteria. Aorta and inferior vena cava are normal in size. Miscellaneous: No ventral hernias. PELVIS: Genitourinary: Bladder wall thickness is normal. Miscellaneous: No inguinal hernias or adenopathy. Bones: No suspicious bony lesions. No vertebral body compression fractures. IMPRESSION: 1. No acute process. 2. Normal appendix. Reviewed by: Kelly Torrez MD on 02/26/2022 7:15 PM PDT Approved by: Kelly Torrez MD on 02/26/2022 7:15 PM PDT Station ID: [id number]
--- NOTE | 2022-02-26 20:34 | ED Physician Documentation ---
PD HPI NVD - Stated complaint Stated Complaint: ABD PX,NAUSEA,VOMITING - Chief complaint Chief Complaint: Abd Pain - History obtained from History obtained from: Patient - History of Present Illness Timing - onset: How many days ago (3) Timing - duration: Days (3) Timing - details: Gradual onset Pain level max: 6 Pain level now: 6 Associated symptoms: Abdominal pain, Other (nausea, vomiting, diarrhea) Contributing factors: No: Sick contact, Travel, Recent antibiotics, Alcohol use, Anticoagulated, Diabetes Recently seen: Not recently seen - Additonal information Additional information: 26-year-old female with nausea, vomiting, diarrhea. She states diarrhea 5-7 times per day. She has had a history of C. difficile in the past and is concerned about recurrence. Review of Systems Constitutional: denies: Fever, Chills Throat: denies: Sore throat Cardiac: denies: Chest pain / pressure Respiratory: denies: Cough GI: denies: Hematemesis, Bloody / black stool : denies: Dysuria, Frequency, Hesitancy, Now EGA PD PAST MEDICAL HISTORY - Past Medical History Cardiovascular: Hypertension Respiratory: None Neuro: None Endocrine/Autoimmune: HyPOthyroidism GI: None, C.difficile HEALTH SERVICE COORDINATOR: None : None HEENT: None Psych: None Musculoskeletal: None Derm: None - Past Surgical History Past Surgical History: Yes General: Cholecystectomy /HEALTH SERVICE COORDINATOR: section HEENT: Tonsil/Adenoidectomy - Present Medications Home Medications: Ambulatory Orders Medication Instructions Recorded Confirmed Metoprolol Succinate [Toprol Xl] 25 mg PO DAILY #30 tablet 11/25/20 09/07/21 Acetaminophen [Acetaminophen Extra 500 mg PO QID PRN #50 tablet 06/17/21 09/07/21 Strength] lisinopriL [Lisinopril] 10 mg PO DAILY #30 tablet 09/07/21 Levothyroxine Sodium [Synthroid] 75 mcg PO DAILY 02/26/22 02/26/22 Ondansetron Odt [Zofran] 4 mg TL Q6H PRN #10 tablet 02/26/22 - Allergies Allergies/Adverse Reactions: Allergies Allergy/AdvReac Type Severity Reaction Status Date / Time morphine Allergy Dizziness Verified 09/07/21 18:51 oxycodone HCl * Allergy Headache Verified 09/07/21 18:51 [From Percocet] topiramate [From Topamax] Allergy Hallucinati Verified 02/26/22 17:29 ons - Social History Does the pt smoke?: No Smoking Status: Never smoker Does the pt drink ETOH?: No Does the pt have substance abuse?: No - Immunizations Immunizations are current?: Yes - POLST Patient has POLST: No PD ED PE NORMAL - Vitals Vital signs reviewed: Yes - General General: Alert and oriented X 3, No acute distress - HEENT HEENT: PERRL, Moist mucous membranes - Neck Neck: Supple, no meningeal sign - Cardiac Cardiac: RRR, Strong equal pulses - Respiratory Respiratory: No respiratory distress, Clear bilaterally - Abdomen Abdomen: Soft, Non distended, Other (Mild diffuse tenderness to palpation without peritoneal signs.) - Back Back: No CVA TTP, No spinal TTP - Derm Derm: Warm and dry - Extremities Extremities: No edema - Neuro Neuro: Alert and oriented X 3 - Psych Psych: Normal mood, Normal affect Results - Vitals Vitals: Vital Signs - 24 hr 02/26/22 02/26/22 02/26/22 17:26 19:28 20:36 Temperature 36.4 C L Heart Rate 96 87 70 Respiratory 16 18 18 Rate Blood Pressure 144/90 H 124/73 116/68 O2 Saturation 98 100 100 Oxygen O2 Source Room air - Labs Labs: Laboratory Tests 02/26/22 02/26/22 02/26/22 17:40 17:48 18:05 WBC 9.8 RBC 4.23 Hgb 11.4 L Hct 34.9 L MCV 82.5 MCH 27.0 MCHC 32.7 RDW 13.2 Plt Count 370 MPV 10.0 Neut # (Auto) 7.3 H Lymph # (Auto) 1.9 [place] # (Auto) 0.6 Eos # (Auto) 0.0 Baso # (Auto) 0.0 Absolute Nucleated RBC 0.00 Nucleated RBC % 0.0 Sodium Potassium Chloride Carbon Dioxide Anion Gap BUN Creatinine Estimated GFR (MDRD) Glucose Calcium Total Bilirubin AST ALT Alkaline Phosphatase Total Protein Albumin Globulin Albumin/Globulin Ratio Lipase Urine Color RED/BLOODY Urine Clarity BLOODY Urine pH 5.5 Ur Specific [place] >=1.030 H Urine Protein 30 H Urine Glucose (UA) NEGATIVE Urine Ketones TRACE Urine Occult Blood LARGE H Urine Nitrite NEGATIVE Urine Bilirubin NEGATIVE Urine Urobilinogen 0.2 (NORMAL) Ur Leukocyte Esterase NEGATIVE Urine RBC TNTC H Urine WBC 0-3 Ur Squamous Epith Cells RARE Squamous Urine Bacteria Few Urine Mucus Few Strands Ur Microscopic Review INDICATED Urine Culture Comments NOT INDICATED Urine HCG, Qual NEGATIVE Stl C. diff Tox B Gene NEGATIVE 02/26/22 18:05 WBC RBC Hgb Hct MCV MCH MCHC RDW Plt Count MPV Neut # (Auto) Lymph # (Auto) [place] # (Auto) Eos # (Auto) Baso # (Auto) Absolute Nucleated RBC Nucleated RBC % Sodium 135 Potassium 3.3 L Chloride 101 Carbon Dioxide 25 Anion Gap 9.0 BUN 14 Creatinine 0.7 Estimated GFR (MDRD) 101 Glucose 94 Calcium 9.3 Total Bilirubin 0.4 AST 56 H ALT 104 H Alkaline Phosphatase 73 Total Protein 8.2 Albumin 4.2 Globulin 4.0 Albumin/Globulin Ratio 1.1 Lipase 32 Urine Color Urine Clarity Urine pH Ur Specific [place] Urine Protein Urine Glucose (UA) Urine Ketones Urine Occult Blood Urine Nitrite Urine Bilirubin Urine Urobilinogen Ur Leukocyte Esterase Urine RBC Urine WBC Ur Squamous Epith Cells Urine Bacteria Urine Mucus Ur Microscopic Review Urine Culture Comments Urine HCG, Qual Stl C. diff Tox B Gene - Rads (name of study) CT abd.pelvis Radiology: Final report received, EMP read contemporaneously, See rad report PD MEDICAL DECISION MAKING - ED course Complexity details: reviewed results, re-evaluated patient, considered differential, d/w patient ED course: No acute findings on CT of the abdomen pelvis. Pain well controlled. Nausea well controlled. Feels better after IV fluids. C. difficile test is negative. Likely viral gastroenteritis. We will prescribe nausea medication for home and have her follow-up with her doctor for further care. Patient counseled regarding signs and symptoms for which I believe and urgent re-evaluation would be necessary. Patient with good understanding of and agreement to plan and is comfortable going home at this time This document was made in part using voice recognition software. While efforts are made to proofread this document, sound alike and grammatical errors may occur. Departure - Departure Disposition: 01 Home, Self Care Clinical Impression: Viral gastroenteritis Condition: Good Instructions: ED Gastroenteritis Viral Follow-Up: Christina Turpin ARNP [Primary Care Provider] - Within 1 week Prescriptions: Ondansetron Odt [Zofran] 4 mg TL Q6H PRN #10 tablet PRN Reason: Nausea / Vomiting Comments: Your prescription was sent to [facility] in [place]. Drink plenty of fluids. Return if you worsen. Your C. difficile test is negative. Your CT scan is negative. Your AST and ALT are mildly elevated today at 56 and 104 respectively. You can follow-up with this with your doctor. Discharge Date/Time: 02/26/22 20:40
[2022-02-26 20:36] VITALS: BP 116/68
== END 2022-02-26 20:40 | disposition home or self-care (01) ==
LOC: ED 17:23
DX: A08.4 Viral intestinal infection, unspecified (principal)
CPT/HCPCS: 36415; 74177; 80053; 81001; 81025; 83690; 85025; 87045; 87046; 87427; 87493; 96374; 99284; Q9967; 81003; 87086

== ENCOUNTER 2022-05-01 08:02 | Outpatient (CLI) | payer MEDICAID ==
[2022-05-01 08:17] LABS: BASOPHILS % (AUTO) 0.2 %; HCT - HEMATOCRIT 38.7 % (37.0-47.0); HGB - HEMOGLOBIN 12.2 g/dL (12.0-16.0); LYMPHOCYTES # (AUTO) 1.8 10^3/uL (1.5-3.5); LYMPHOCYTES % (AUTO) 20.8 %; MEAN CORPUSCULAR HEMOGLOBIN 26.2 pg (27.0-31.0); MEAN CORPUSCULAR HGB CONC 31.5 g/dL (32.0-36.0); MEAN PLATELET VOLUME 9.7 fL (7.9-10.8); MONOCYTES # (AUTO) 0.4 10^3/uL (0.0-1.0); MONOCYTES % (AUTO) 5.1 %; NEUTROPHILS # (AUTO) 6.2 10^3/uL (1.5-6.6); NEUTROPHILS % (AUTO) 73.5 %; PLT - PLATELET COUNT 368 10^3/uL (130-450); RED BLOOD COUNT 4.66 10^6/uL (4.20-5.40); RED CELL DISTRIBUTION WIDTH 13.2 % (12.0-15.0); WHITE BLOOD COUNT 8.5 x10^3/uL (4.8-10.8)
== END 2022-05-01 08:03 | disposition home or self-care (01) ==
LOC: LAB 08:02
PROVIDERS: ATTEND Obstetrics & Gynecology
DX: Z01.812 Encounter for preprocedural laboratory examination (principal); Z20.822 Contact with and (suspected) exposure to COVID-19
CPT/HCPCS: 36415; 85025; 86850; 86900; 86901

== ENCOUNTER 2022-05-02 07:11 | Day surgery (SDC) | payer MEDICAID ==
[2022-05-02 07:07] LABS: HCG UR QUAL NEGATIVE
[~2022-05-02 07:11] MED LIST: BUPIVACAINE 0.5% PF 30 ML VIAL ONE; LACTATED RINGERS 1,000 ML IV ONE; LIDOCAINE MPF 2%-EPI 1:200000 20 ML VIAL ONE
[2022-05-02] MEDS ORDERED: MIDAZOLAM 2 MG/2 ML VIAL ONE (07:13)
[2022-05-02] MEDS ORDERED: fentaNYL 100 MCG/2 ML VIAL ONE (07:13)
[2022-05-02] MEDS ORDERED: PROPOFOL 200 MG/20 ML VIAL IVP ONE (07:14)
[2022-05-02] MEDS ORDERED: ONDANSETRON 4 MG/2 ML VIAL ONE (07:14)
[2022-05-02] MEDS ORDERED: DEXAMETHASONE 4 MG/ML VIAL ONE (07:14)
[2022-05-02] MEDS ORDERED: ROCURONIUM 50 MG/5 ML VIAL ONE (07:14)
[2022-05-02] MEDS ORDERED: diphenhydrAMINE INJ 50 MG/ML VIAL ONE (07:14)
[2022-05-02] MEDS ORDERED: KETAMINE 500 MG/10 ML VIAL ONE (07:42)
[2022-05-02] MEDS ORDERED: ACETAMINOPHEN 1,000 MG/100 ML 1,000 MG/100 ML BAG IV ONE (08:08)
[2022-05-02] MEDS ORDERED: ONDANSETRON 4 MG/2 ML VIAL IVP PRN (08:20)
[2022-05-02] MEDS ORDERED: METOCLOPRAMIDE 10 MG/2 ML VIAL IVP PRN (08:20)
[2022-05-02] MEDS ORDERED: ePHEDrine 50 MG/ML VIAL IVP PRN (08:20)
[2022-05-02] MEDS ORDERED: NALOXONE 0.4 MG/ML VIAL IVP PRN (08:20)
[2022-05-02] MEDS ORDERED: ATROPINE ABBOJECT 1 MG/10 ML SYRINGE IVP PRN (08:20)
--- NOTE | 2022-05-02 08:20 | ANESTHESIA ---
Pre-Anesthesia VS, & Labs - Diagnosis desired sterility - Procedure lap salpingectomy Vital Signs: Temp Pulse Resp BP Pulse Ox O2 Flow Rate 36.9 C 80 18 121/80 95 05/02/22 06:50 05/02/22 06:50 05/02/22 06:50 05/02/22 06:50 05/02/22 06:50 Height: 5 ft 8 in Weight (kg): 141.8 kg Body Mass Index: 47.5 BMI Classification: Morbidly Obese - NPO >8 hours - Is Patient ?: No Home Medications and Allergies Home Medications: Ambulatory Orders diphenhydrAMINE [Benadryl] 25 mg PO Q4-6H PRN 04/24/22 Levothyroxine Sodium [Synthroid] 75 mcg PO DAILY 02/26/22 diphenhydrAMINE [Benadryl] 25 mg PO Q4-6H PRN 04/24/22 Allergies/Adverse Reactions: Allergies Allergy/AdvReac Type Severity Reaction Status Date / Time fentanyl Allergy back pain, Verified 04/24/22 12:09 nausea, headache, dizziness meloxicam Allergy tingling Verified 04/24/22 12:09 and puffiness to hands and feet morphine Allergy Dizziness Verified 09/07/21 18:51 oxycodone HCl * Allergy Headache Verified 09/07/21 18:51 [From Percocet] topiramate [From Topamax] Allergy Hallucinati Verified 02/26/22 17:29 ons Anes History & Medical History - Anesthetic History Anesthesia Complications: reports: No previous complications Family history of Anesthesia Complications: Denies Family history of Malignant Hyperthermia: Denies - Medical History Cardiovascular: reports: Hypertension Pulmonary: reports: None Gastrointestinal: reports: None, C.difficile Urinary: reports: None Neuro: reports: None Musculoskeletal: reports: None Endocrine/Autoimmune: reports: HyPOthyroidism Blood Disorders: reports: None Skin: reports: None Smoking Status: Never smoker History of Cancer?: No - Surgical History General: reports: Cholecystectomy Eyes Ears Nose Throat (EENT): reports: Tonsil/Adenoidectomy Gynecologic: reports: section Exam General: Alert, Oriented x3, Cooperative Dental: WNL Mouth Openin Fingerbreadth Neck Mobility: Normal Mallampati classification: II Thyromental Distance: less than 4 cm Respiratory: Lungs clear Cardiovascular: Regular rate Plan Anesthesia Type: General (pt prefers minimal opioids due to an intolerace. will use opioid sparing anesthesia) Consent for Procedure(s) Verified and Reviewed: Yes Code Status: Attempt Resuscitation ASA classification: 3-Severe systemic disease Is this case an emergency?: No
[2022-05-02] MEDS ORDERED: BUPIVACAINE 0.5% PF 30 ML VIAL INFIL ONE ×2 (08:23)
[2022-05-02] MEDS ORDERED: LACTATED RINGERS 1,000 ML IV SCH (09:00)
--- NOTE | 2022-05-02 09:06 | OPERATIVE REPORT ---
Operative Report - General Procedure Date: 05/02/22 Planned Procedure: Laparoscopic bilateral salpingectomy Pre-Op Diagnosis: Desires sterility Procedure Performed: Laparoscopic bilateral salpingectomy Post Op Diagnosis: Same - Procedure Note Primary Surgeon: Buzz iKngston MD Secondary Surgeon: Greta Joe DO Anesthesia Provider: Liz Mackay CRNA Anesthesia Technique: General ET tube Pathology: Bilateral fallopian tubes IV Fluids (mL): 900 Estimated Blood Loss (mL): 5 Urine Output (mL): 100 Complications: None - Other Other Information/Narrative: Prior to surgery, we discussed the risks, alternatives, benefits to tubal ligation. We discussed long-acting control such as IUDs and implants. We had discussion about partner vasectomy and the pros and cons to this including a smaller surgery, and easier recovery. We discussed the general risk of surgery including infection, bleeding, damage to other organs, needing a larger incision. Specific to tubal ligation, we discussed the risk of regret, and discussed that regret is greater in those under 30, without children, and not in stable relationships. Patient says she is confident in her decision to not have any more children. We also discussed the risk of failure, and that less than 1/100 tubal ligation fail, but if it did, she would be at increased risk of ectopic . Patient desires to proceed with bilateral tubal ligation. Patient was taken to the OR and placed in the dorsal lithotomy position using great white stirrups after adequate anesthesia was obtained. Patient was prepped and draped in the usual fashion. A bivalve speculum was used to visualize the cervix and a uterine manipulator was placed. 2 mL of 0.5 % Marcaine was used below the umbilicus. An 11 blade scalpel was used to incise the skin. We first attempted a varies needle insertion, but did not get adequate entry to the peritoneum, so we switched to direct visual entry which was used to place the infraumbilical trocar. Upon entering the peritoneal cavity, low flow was used to ensure appropriate positioning. Upon visualization of the abdominal cavity, high flow was then initiated. 2 additional trocars was placed under visualization in a similar fashion in the right and left lower quadrants. After visualization of the left fallopian tube, it was grasped with an atraumatic grasper. The mesosalpinx was cauterized and cut with a Ligasure device. Attention was then turned to the right fallopian tube which was then removed in a similar fashion. The abdomen was reviewed for hemostasis, and a healthy-appearing liver was noted. The trocars were then removed, and abdomen was evacuated of gas. The trocar sites were then closed with a 4-0 Monocryl in a sub-cuticular fashion and covered with Dermabond. Patient was taken to the PACU in stable condition. I appreciate the assistance of Dr. Greta Joe during this procedure, and the assistance in retraction, visualization, dissection, and overall assistance during the case were instrumental to the patient's wellbeing.
[2022-05-02] MEDS ORDERED: LACTATED RINGERS 1,000 ML IV ONE (09:14)
--- NOTE | 2022-05-02 09:36 | ANESTHESIA POST OP EVALUATION ---
Anesthesia Post Eval - Post Anesthesia Eval Vitals: Last Vital Signs Temp 37 C 05/02/22 09:18 Pulse 113 H 05/02/22 09:18 Resp 26 H 05/02/22 09:18 BP 159/95 H 05/02/22 09:18 Pulse Ox 100 05/02/22 09:18 O2 Flow Rate CV Function Including HR & BP: Stable Pain Control: Satisfactory Nausea & Vomiting: Negative Mental Status: Baseline Respiratory Status: Airway Patent Hydration Status: Satisfactory Anesthesia Complications: None
[2022-05-02 11:43] VITALS: BP 118/77
== END 2022-05-02 07:12 | disposition home or self-care (01) ==
LOC: SDS 07:11
PROVIDERS: ATTEND Obstetrics & Gynecology
PROC: 0UB74ZZ Excision of Bilateral Fallopian Tubes, Percutaneous Endoscopic Approach (ICD-10-PCS; principal; 2022-05-02 07:30)
DX: Z30.2 Encounter for sterilization (principal); I10 Essential (primary) hypertension; E66.01 Morbid (severe) obesity due to excess calories; E11.9 Type 2 diabetes mellitus without complications; G47.30 Sleep apnea, unspecified; Z32.02 Encounter for pregnancy test, result negative; Z68.42 Body mass index [BMI] 45.0-49.9, adult; Z87.891 Personal history of nicotine dependence
CPT/HCPCS: 36415; 58661; 81025; J0131; J1200; J7120

== ENCOUNTER 2022-07-14 07:20 | Outpatient (CLI) | payer MEDICAID ==
[2022-07-14 22:08] LABS: BACTERIAL VAGINOSIS DNA POSITIVE (NEGATIVE); CANDIDA GLABRATA DNA NEGATIVE (NEGATIVE); CANDIDA GROUP DNA NEGATIVE (NEGATIVE); CANDIDA KRUSEI DNA NEGATIVE (NEGATIVE); TRICHOMONAS VAGINALIS DNA NEGATIVE (NEGATIVE)
[2022-07-14 23:06] LABS: CHLAMYDIA TRACHOMATIS DNA NEGATIVE (NEGATIVE); NEISSERIA GONORRHOEAE DNA NEGATIVE (NEGATIVE)
[2022-07-15 06:09] LABS: HCV AB 0.2 s/co ratio (0.0-0.9)
== END 2022-07-14 23:59 | disposition home or self-care (01) ==
LOC: LAB.N 07:20
PROVIDERS: ATTEND Physician Assistant Medical
DX: N76.0 Acute vaginitis (principal)
CPT/HCPCS: 81514; 86592; 86803; 87491; 87591; 87661

== ENCOUNTER 2022-07-18 14:28 | Outpatient (CLI) | payer MEDICAID ==
[2022-07-18 14:37] LABS: HCT - HEMATOCRIT 38.3 % (37.0-47.0); HGB - HEMOGLOBIN 11.9 g/dL (12.0-16.0); MEAN CORPUSCULAR HGB CONC 31.1 g/dL (32.0-36.0); MEAN CORPUSCULAR VOLUME 83.6 fL (81.0-99.0); MEAN PLATELET VOLUME 9.9 fL (7.9-10.8); RED BLOOD COUNT 4.58 10^6/uL (4.20-5.40); RED CELL DISTRIBUTION WIDTH 13.3 % (12.0-15.0); WHITE BLOOD COUNT 10.1 x10^3/uL (4.8-10.8)
== END 2022-07-18 14:29 | disposition home or self-care (01) ==
LOC: LAB 14:28
PROVIDERS: ATTEND Obstetrics & Gynecology
DX: N93.9 Abnormal uterine and vaginal bleeding, unspecified (principal)
CPT/HCPCS: 36415; 85027

== ENCOUNTER 2022-10-10 12:37 | Outpatient (CLI) | payer MEDICAID ==
[2022-10-10 18:25] LABS: BASOPHILS % (AUTO) 0.4 %; HCT - HEMATOCRIT 39.2 % (37.0-47.0); HGB - HEMOGLOBIN 12.2 g/dL (12.0-16.0); LYMPHOCYTES # (AUTO) 1.7 10^3/uL (1.5-3.5); LYMPHOCYTES % (AUTO) 17.3 %; MEAN CORPUSCULAR HEMOGLOBIN 26.2 pg (27.0-31.0); MEAN CORPUSCULAR HGB CONC 31.1 g/dL (32.0-36.0); MEAN CORPUSCULAR VOLUME 84.1 fL (81.0-99.0); MEAN PLATELET VOLUME 10.4 fL (7.9-10.8); MONOCYTES # (AUTO) 0.4 10^3/uL (0.0-1.0); NEUTROPHILS # (AUTO) 7.6 10^3/uL (1.5-6.6); PLT - PLATELET COUNT 398 10^3/uL (130-450); RED BLOOD COUNT 4.66 10^6/uL (4.20-5.40); RED CELL DISTRIBUTION WIDTH 13.6 % (12.0-15.0); WHITE BLOOD COUNT 9.8 x10^3/uL (4.8-10.8)
[2022-10-10 18:45] LABS: ALBUMIN 3.8 g/dL (3.2-5.5); ALKALINE PHOSPHATASE 61 IU/L (42-121); ALT ALANINE AMINOTRANSFERASE 32 IU/L (10-60); AST ASPARTATE AMINOTRANSFERASE 19 IU/L (10-42); BILIRUBIN,TOTAL 0.4 mg/dL (0.2-1.0); BUN - BLOOD UREA NITROGEN 7 mg/dL (6-20); CALCIUM 9.3 mg/dL (8.5-10.3); CARBON DIOXIDE - CO2 27 mmol/L (21-32); CHLORIDE 107 mmol/L (101-111); CHOL/HDL RATIO 3.8 (<4.4); CHOLESTEROL 124 mg/dL; CREATININE 0.7 mg/dL (0.4-1.0); GFR - MDRD 101 (>89); GLUCOSE 94 mg/dL (70-100); HDL CHOLESTEROL 33 mg/dL; LDL CHOLESTEROL,CALCULATED 77 mg/dL; LDL/HDL RATIO 2.3 (<4.4); POTASSIUM 3.7 mmol/L (3.5-5.0); SODIUM 140 mmol/L (135-145); TOTAL PROTEIN 7.5 g/dL (6.7-8.2); TRIGLYCERIDES 71 mg/dL; VLDL CHOLESTEROL 14 mg/dL
[2022-10-10 18:55] LABS: THYROID STIMULATING HORMONE 1.83 uIU/mL (0.34-5.60)
[2022-10-10 20:40] LABS: ESTIMATED AVERAGE GLUCOSE 123 mg/dL (70-100); HEMOGLOBIN A1c% 5.9 % (4.27-6.07)
[2022-10-13 00:08] LABS: HCV AB Non Reactive (Non Reactive)
== END 2022-10-10 12:38 | disposition home or self-care (01) ==
LOC: LAB.N 12:37
PROVIDERS: ATTEND Nurse Practitioner Family
DX: I10 Essential (primary) hypertension (principal); F41.9 Anxiety disorder, unspecified; E03.9 Hypothyroidism, unspecified; Z20.2 Contact with and (suspected) exposure to infections with a predominantly sexual mode of transmission
CPT/HCPCS: 36415; 80053; 80061; 83036; 83721; 84443; 85025; 86592; 86803

== ENCOUNTER 2022-10-25 08:00 | Outpatient (CLI) | payer MEDICAID ==
[2022-10-25 10:41] LABS: BILIRUBIN,URINE NEGATIVE (NEGATIVE); GLUCOSE, URINE (UA) NEGATIVE (NEGATIVE); KETONES,URINE (UA) NEGATIVE (NEGATIVE); LEUKOCYTE ESTERASE, URINE NEGATIVE (NEGATIVE); NITRITE,URINE NEGATIVE (NEGATIVE); OCCULT BLOOD,URINE NEGATIVE (NEGATIVE); PROTEIN,URINE NEGATIVE (NEGATIVE); UROBILINOGEN,URINE 0.2 (NORMAL) E.U./dL (NORMAL)
[2022-10-25 10:50] LABS: CLARITY,URINE CLOUDY (CLEAR)
[2022-10-25 10:51] LABS: BACTERIA,URINE Moderate /HPF (None Seen); RBC,URINE 0-5 /HPF (0-5); SQUAMOUS EPITHELIAL CELL,UR FEW Squamous (<= Few); WBC,URINE 0-3 /HPF (0-5)
[2022-10-25 20:45] LABS: BACTERIAL VAGINOSIS DNA POSITIVE (NEGATIVE)
[2022-10-25 20:46] LABS: CANDIDA GLABRATA DNA NEGATIVE (NEGATIVE); CANDIDA GROUP DNA NEGATIVE (NEGATIVE); CANDIDA KRUSEI DNA NEGATIVE (NEGATIVE); TRICHOMONAS VAGINALIS DNA NEGATIVE (NEGATIVE)
== END 2022-10-25 23:59 | disposition home or self-care (01) ==
LOC: LAB.WC 08:00
PROVIDERS: ATTEND Obstetrics & Gynecology
DX: N76.0 Acute vaginitis (principal); R39.89 Other symptoms and signs involving the genitourinary system
CPT/HCPCS: 81001; 81514; 87086

== ENCOUNTER 2022-11-24 17:00 | Outpatient (CLI) | payer MEDICAID | END 2022-11-24 17:15 | disposition home or self-care (01) | LOC: LAB.N 17:00 | PROVIDERS: ATTEND Nurse Practitioner | DX: R07.0 Pain in throat (principal) | CPT/HCPCS: 87070 ==

== ENCOUNTER 2022-12-04 08:00 | Outpatient (CLI) | payer MEDICAID ==
[2022-12-04 14:12] LABS: BILIRUBIN,URINE NEGATIVE (NEGATIVE); GLUCOSE, URINE (UA) NEGATIVE (NEGATIVE); KETONES,URINE (UA) NEGATIVE (NEGATIVE); LEUKOCYTE ESTERASE, URINE TRACE (NEGATIVE); NITRITE,URINE NEGATIVE (NEGATIVE); OCCULT BLOOD,URINE NEGATIVE (NEGATIVE); PH,URINE 5.5 PH (5.0-7.5); PROTEIN,URINE NEGATIVE (NEGATIVE); UROBILINOGEN,URINE 0.2 (NORMAL) E.U./dL (NORMAL)
[2022-12-04 14:21] LABS: AMORPHOUS SEDIMENT,UR Marked /LPF; BACTERIA,URINE Few /HPF (None Seen); CLARITY,URINE CLOUDY (CLEAR); RBC,URINE 0-5 /HPF (0-5); SQUAMOUS EPITHELIAL CELL,UR MOD Squamous (<= Few)
[2022-12-04 22:30] LABS: BACTERIAL VAGINOSIS DNA NEGATIVE (NEGATIVE); CANDIDA GLABRATA DNA NEGATIVE (NEGATIVE); CANDIDA GROUP DNA NEGATIVE (NEGATIVE); CANDIDA KRUSEI DNA NEGATIVE (NEGATIVE); TRICHOMONAS VAGINALIS DNA NEGATIVE (NEGATIVE)
== END 2022-12-04 23:59 | disposition home or self-care (01) ==
LOC: LAB.WC 08:00
PROVIDERS: ATTEND Nurse Practitioner
DX: R39.89 Other symptoms and signs involving the genitourinary system (principal); N76.0 Acute vaginitis
CPT/HCPCS: 81001; 81514; 87086

== ENCOUNTER 2022-12-11 16:26 | Outpatient (CLI) | payer MEDICAID ==
[2022-12-11 22:13] LABS: ESTIMATED AVERAGE GLUCOSE 114 mg/dL (70-100); HEMOGLOBIN A1c% 5.6 % (4.27-6.07)
[2022-12-11 22:17] LABS: THYROID STIMULATING HORMONE 1.36 uIU/mL (0.34-5.60)
[2022-12-11 22:18] LABS: FREE T4 (FREE THYROXINE) 0.9 ng/dL (0.58-1.64)
[2022-12-11 22:20] LABS: FREE T3 3.21 pg/mL (2.5-3.9)
== END 2022-12-11 16:27 | disposition home or self-care (01) ==
LOC: LAB.N 16:26
PROVIDERS: ATTEND Physician Assistant
DX: N76.0 Acute vaginitis (principal); E03.9 Hypothyroidism, unspecified; R39.89 Other symptoms and signs involving the genitourinary system
CPT/HCPCS: 36415; 83036; 84439; 84443; 84481

== ENCOUNTER 2023-01-09 12:07 | Outpatient (CLI) | payer MEDICAID ==
[2023-01-09 12:44] LABS: CREATININE 0.7 mg/dL (0.6-1.3); CRP - C-REACTIVE PROTEIN 1.4 mg/dL (<0.5)
[2023-01-10 10:09] LABS: VITAMIN D 25-HYDROXY 29.3 ng/mL (30.0-100.0)
--- NOTE | 2023-01-10 14:38 | MRI Report ---
PROCEDURE: BRAIN W/WO INDICATIONS: PARESTHESIA, BLURRED VISION CONTRAST: gadaavist 1.9ml TECHNIQUE: Noncontrast axial T1 spin echo, axial T2 fast spin echo, sagittal and axial FLAIR, coronal T2 fast sp in echo, axial gradient echo, axial diffusion and ADC through the brain. After the administration of contrast, axial and coronal T1 spin echo with fat saturation through the brain. COMPARISON: MRI brain 01/27/2021 FINDINGS: Image quality: Excellent. CSF spaces: Basal cisterns are patent. No extra-axial fluid collections. Ventricles are normal in size and shape. Brain: No midline shift. No intracranial bleeds or masses. No abnormal intracranial enhancement. There is cerebral volume loss for age. There is periventricular white matter chronic small vessel is chemic change. The brainstem appears normal. Diffusion-weighted images demonstrate no acute ischemi c insults. No chronic ischemic insults. Normal intravascular flow voids are present. Skull and face: Calvarial marrow is normal in signal. Orbits appear normal. Extraocular muscles ar e within normal limits for Sinuses: Sinuses and mastoids appear clear. IMPRESSION: 1. No acute intracranial process. 2. Orbits are unremarkable. Reviewed by: Jena Durbin MD on 01/10/2023 2:37 PM PDT Approved by: Jena Durbin MD on 01/10/2023 2:37 PM PDT Station ID: [id number]
[2023-01-10 20:08] LABS: ANTI-DNA (DS) AB QN 6 IU/mL (0-9)
[2023-01-11 16:08] LABS: ANTINUCLEAR ANTIBODIES IFA Negative (.)
== END 2023-01-09 12:08 | disposition home or self-care (01) ==
LOC: LAB 12:07
PROVIDERS: ATTEND Physician Assistant
DX: R20.2 Paresthesia of skin (principal); H53.8 Other visual disturbances; E55.9 Vitamin D deficiency, unspecified
CPT/HCPCS: 36415; 70553; 82306; 82565; 82607; 82746; 85598; 85613; 85651; 85732; 86038; 86140; 86225; A9585

== ENCOUNTER 2023-01-29 13:35 | Outpatient (CLI) | payer MEDICAID ==
[2023-01-29 13:52] LABS: BASOPHILS % (AUTO) 0.5 %; HCT - HEMATOCRIT 37.5 % (37.0-47.0); LYMPHOCYTES # (AUTO) 1.5 10^3/uL (1.5-3.5); LYMPHOCYTES % (AUTO) 17.4 %; MEAN CORPUSCULAR HEMOGLOBIN 27.1 pg (27.0-31.0); MEAN CORPUSCULAR VOLUME 84.8 fL (81.0-99.0); MEAN PLATELET VOLUME 9.8 fL (7.9-10.8); MONOCYTES # (AUTO) 0.5 10^3/uL (0.0-1.0); MONOCYTES % (AUTO) 5.9 %; NEUTROPHILS # (AUTO) 6.3 10^3/uL (1.5-6.6); PLT - PLATELET COUNT 356 10^3/uL (130-450); RED BLOOD COUNT 4.42 10^6/uL (4.20-5.40); RED CELL DISTRIBUTION WIDTH 12.6 % (12.0-15.0); WHITE BLOOD COUNT 8.3 x10^3/uL (4.8-10.8)
[2023-01-29 14:01] LABS: INR 1.1 (0.8-1.2); PT - PROTHROMBIN TIME 12.6 secs (9.9-12.6)
[2023-01-29 14:10] LABS: PARTIAL THROMBOPLASTIN TIME 47.9 secs (24.9-33.3)
== END 2023-01-29 13:36 | disposition home or self-care (01) ==
LOC: LAB 13:35
PROVIDERS: ATTEND Physician Assistant
DX: D68.61 Antiphospholipid syndrome (principal); D64.9 Anemia, unspecified
CPT/HCPCS: 36415; 81599; 85025; 85610; 85730